=== PATIENT | female | born 1980 | race Caucasian/White ===

== ENCOUNTER 2020-01-03 08:47 | Outpatient (REF) | payer OTHER, SELFPAY | END 2020-01-03 08:48 | disposition home or self-care (01) | LOC: HO.LAB 08:47 | PROVIDERS: Visit Provider Internal Medicine | DX: Z20.828 Contact with and (suspected) exposure to other viral communicable diseases (principal) | CPT/HCPCS: C9803; U0003 ==

== ENCOUNTER 2020-02-16 10:01 | Outpatient (REF) | payer OTHER, SELFPAY | END 2020-02-16 10:02 | disposition home or self-care (01) | LOC: HO.LAB 10:01 | PROVIDERS: Visit Provider Internal Medicine | DX: Z20.828 Contact with and (suspected) exposure to other viral communicable diseases (principal) | CPT/HCPCS: C9803; U0003 ==

== ENCOUNTER 2020-10-18 18:02 | Emergency (ER) | payer OTHER, SELFPAY ==
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
[2020-10-18 18:12] VITALS: BP 136/97; PULSE 120; RESP 16; TEMP 36.6; O2SAT 96; BMI 28.1
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
[2020-10-18] MEDS: Acetaminophen 325 MG TABLET 650 MG PO (19:15)
[2020-10-18] MEDS: Amoxicillin/Potassium Clav 875 MG TABLET PO (19:16)
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
--- NOTE | 2020-10-18 19:54 | PC.NURSE ---
client to and from imaging without incident
[2020-10-18 20:56] VITALS: BP 171/86; PULSE 106; RESP 18; TEMP 36.7; O2SAT 97
[2020-10-18] MEDS: Diphth,Pertus(ACell),Tet Adult 0.5 ML SYRINGE IM (20:57)
== END 2020-10-18 21:07 | disposition home or self-care (01) ==
PROVIDERS: Emergency Provider Internal Medicine; PCP Family Medicine
DX: S00.83XA Contusion of other part of head, initial encounter (principal); S00.212A Abrasion of left eyelid and periocular area, initial encounter; S61.234A Puncture wound without foreign body of right ring finger without damage to nail, initial encounter; Y04.1XXA Assault by human bite, initial encounter; Y93.89 Activity, other specified; Y92.410 Unspecified street and highway as the place of occurrence of the external cause; Y99.9 Unspecified external cause status
CPT/HCPCS: 70450; 72125; 90471; 90715; 99284

== ENCOUNTER → 2021-12-23 13:32 | Outpatient (REF) | payer OTHER, SELFPAY ==
--- NOTE | 2021-12-23 13:36 | CA_ITS ---
Transthoracic Echocardiogram Patient (Last, First, Middle): Nida Hampton, Gender: Female Date of : 1980 Age: 41 Procedure Date: 12/23/2021 Procedure Type: Transthoracic Echocardiogram Location: OP Height: 175.26 cm Weight: 96.16 kg BSA: 2.12 m2 Heart Rate: 57 bpm BP: 130 / 78 mmHg Business Area Director: SB Referring MD: Fredy Schumacher MD Regulatory Specialist: Baldemar Stallings MD Symptoms: R01.1 - Cardiac murmur, unspecified Study Quality: Adequate ECG Rhythm: Bradycardia Conclusions: - Essentially normal study Findings Left Ventricle Normal left ventricular size, thickness, and systolic function. The visually estimated ejection fraction is between 65-70%. Diastolic function is normal for age. Right Ventricle Normal right ventricular cavity size and systolic function. Atria Both atria are normal in size. There is no evidence of interatrial shunt. Aortic Valve Normal aortic valve structure and function. There is no aortic valve stenosis. There is no aortic valve regurgitation. Mitral Valve Normal mitral valve structure and function. There is trace mitral valve regurgitation. There is no mitral valve stenosis. Pulmonic Valve The pulmonic valve is likely normal. Tricuspid Valve Normal tricuspid valve structure. Tricuspid regurgitation envelope is inadequate for calculation of right ventricular systolic pressure. Normal right atrial pressure. Great Vessels All visible segments of the aorta are normal in size. The pulmonary artery was not well visualized. Venous The inferior vena cava is normal in size and collapses greater than 50% with inspiration. Pericardium/Pleural There is no evidence of pericardial effusion. Prior Study Comparison no previous study in the last 5 years for comparison Measurements 2D Linear Measurements IVSd: 1.23 0.6-0.9/0.6-1.0 cm LVIDd: 3.75 3.9-5.3/4.2-5.9 cm LVIDd Index: 1.77 2.4-3.2/2.2-3.1 cm/m2 LVIDs: 2.82 2.0-3.6 cm LVPWd: 0.89 0.7-1.1 cm LA Diam: 3.30 2.7-3.8/3.0-4.0 cm LAIDs Index: 1.56 1.5-2.3 cm/m2 LV Mass: 155.29 67-162/88-224 g LV Mass Index: 73.25 43-95/49-115 g/m2 LVOT Diam: 2.20 3.0+(-)1.3 cm 2D Systolic Function EF 4C: 74.80 >55% EF 2C: 64.30 >55% EF BiP: 70.40 >55% Mitral Valve MV Pk E: 0.68 MV PK A: 0.45 MV Decel Time: 149.00 E/A: 1.50 E'Lateral: 11.70 E'Medial: 8.92 E/E' Med: 7.60 E/E' Lat: 5.80 PHT: 44.00 MVA PHT: 5.00 Decel [place]: 4.58 Aortic Valve AoV Pk Jethro: 1.12 AoV Mn Jethro: 0.86 AoV VTI: 0.25 AoV Pk Grad: 5.00 Aov Mn Grad: 3.00 KATE Cont.VTI: 3.43 LVOT LVOT Pk Jethro: 1.02 LVOT Mn Jethro: 0.71 LVOT VTI: 0.22 LVOT Pk Grad: 4.00 LVOT Mn Grad: 2.00 LVOT Diam: 2.20 LVOT Area: 3.80 Diastolic Function MV Pk E: 0.68 MV Pk A: 0.45 E/A: 1.50 E'Medial: 8.92 E/E' Med: 7.60 E' Laterial: 11.70 E/E' Lat: 5.80 Right Ventricle TAPSE (mm): 17.80 TVS' Jethro: 11.00 Tricuspid Valve RA Press: 3.00 Great Vessels Aorta Sinus of Valsalva: 3.30 2.0-3.5 cm Ao Asc: 3.10 2.1-3.4 cm Pulmonary Veins Pulm Vein S/D 1.20 Pulmonary Valve PV Pk Jethro: 1.06 Peak PV Grad: 4.00 Updated in Other Vendor System with Status of Final Baldemar Stallings MD electronically signed on 12/23/2021 5:30:29 PM with status of Final
== END ==
LOC: HO.CARD 13:32
PROVIDERS: Visit Provider Family Medicine
DX: R01.1 Cardiac murmur, unspecified (principal); Z86.19 Personal history of other infectious and parasitic diseases
CPT/HCPCS: 93306

== ENCOUNTER 2021-12-31 14:25 | Outpatient (REF) | payer OTHER, SELFPAY ==
--- NOTE | ~2021-12-31 | MM_ITS ---
EXAMINATION: MM SCREENING DIGITAL BREAST TOMOSYNTHESIS, BILATERAL CLINICAL INFORMATION: Screening. Asymptomatic. The lifetime risk of breast cancer based on the Tyrer-Cuzick Model is 24.7%. Additional annual screening with breast MRI may be of benefit in women with a score of 20% or greater. COMPARISON: Mammography: None TECHNIQUE: Digital breast tomosynthesis is performed in both the craniocaudal and mediolateral oblique views along with computer-aided detection (CAD). Synthesized 2D images are generated from the tomosynthesis. FINDINGS: The breasts are heterogeneously dense, which may obscure small masses (ACR BI-RADS breast composition Category c). No suspicious abnormal dominant mass or grouping of microcalcifications identified within the left breast. Within the anterior medial aspect of the right breast approximately 2.5 cm from the nipple there is a density with lobulated borders versus superimposition of fibroglandular tissue for which spot compression view and possible ultrasound if this is a persistent finding is recommended. MM/MM tomosynthesis screening BI IMPRESSION: Right breast density for further evaluation. ASSESSMENT: BI-RADS 0: Incomplete - Need Additional Imaging Evaluation RECOMMENDATION: 1. Additional views of the right breast. 2. Targeted ultrasound if warranted after review of the additional views. 3. Radiology department staff will contact the patient for additional imaging. This patient's information was entered into a reminder system with a target due date for their next mammogram.
== END 2021-12-31 14:26 | disposition home or self-care (01) ==
LOC: HO.MAMMO 14:25
PROVIDERS: PCP Family Medicine; Visit Provider Family Medicine
DX: Z12.31 Encounter for screening mammogram for malignant neoplasm of breast (principal)
CPT/HCPCS: 77063; 77067

== ENCOUNTER 2022-01-06 08:14 | Outpatient (REF) | payer OTHER, SELFPAY ==
--- NOTE | ~2022-01-06 | MM_ITS ---
EXAMINATION: MM DIAGNOSTIC DIGITAL BREAST TOMOSYNTHESIS, RIGHT US DIAGNOSTIC ULTRASOUND BREAST, RIGHT CLINICAL INFORMATION: Recall from screening for asymmetric fibroglandular density anterior medial right breast on CC view on baseline exam. TC score 25%. Family history premenopausal breast cancer, mother. COMPARISON: Mammography: 12/31/2021 (baseline, BI-RADS 0). TECHNIQUE: Digital breast tomosynthesis is performed. 2D images are generated from the tomosynthesis. The following views are obtained: Spot CC, rolled CC x2. Ultrasound right breast is performed using grayscale imaging and color Doppler without and with harmonics. FINDINGS: There are scattered areas of fibroglandular density (ACR BI-RADS breast composition Category b). There is a subtle small asymmetry in the area for follow-up on the rolled CC and medial view but no correlate on the rolled CC lateral view nor on the spot CC view. There is no architectural abnormality. Ultrasound demonstrates no cystic or solid mass or architectural abnormality or focal duct ectasia. Results are discussed with the patient at time of visit. Finding likely represents summation artifact. There is no ultrasound correlate there are persistent three-dimensional finding on additional views. Given the family history, short interval follow-up right mammography will be requested in 6 months. MM/MM tomosynthesis added views R IMPRESSION: -No suspicious mammographic finding. Suspect summation artifact. -Unremarkable ultrasound. ASSESSMENT: BI-RADS 3: Probably Benign RECOMMENDATION: Diagnostic right mammography in 6 months. This patient's information was entered into a reminder system with a target due date for their next mammogram.
== END 2022-01-06 08:15 | disposition home or self-care (01) ==
LOC: HO.MAMMO 08:14
PROVIDERS: PCP Family Medicine; Visit Provider Family Medicine
DX: R92.2 Inconclusive mammogram (principal)
CPT/HCPCS: 76642; 77061; 77065

== ENCOUNTER 2022-02-11 06:09 | Outpatient (REF) | payer OTHER, SELFPAY ==
[2022-02-11 06:24] LABS: MANUAL DIFF FLAG NO
[2022-02-11 07:25] LABS: Basophils Absolute Auto 0.1 X10*3/uL (0.0-0.2); Basophils Percent Auto 0.7 % (0-2); Eosinophils Absolute Auto 0.2 X10*3/uL (0.0-0.4); Eosinophils Percent Auto 3.1 % (0-4); Hematocrit 44.9 % (37.0-47.0); Hemoglobin 14.5 g/dl (12.0-16.0); Imm Gran Abs Auto 0.02 X10*3/uL (0.00-0.03); Imm Gran Pct Auto 0.3 % (0.0-0.4); Lymphocytes Absolute Auto 2.7 X10*3/uL (1.2-4.9); Lymphocytes Percent Auto 40.1 % (20-40); Mean Corpuscular HGB Conc 32.3 g/dl (31.0-35.0); Mean Corpuscular Hemoglobin 28.3 pg (27.0-33.0); Mean Corpuscular Volume 87.5 fL (80.0-98.0); Mean Platelet Volume 9.7 fL (9.4-12.3); Monocytes Absolute Auto 0.5 X10*3/uL (0.1-1.2); Monocytes Percent Auto 7.8 % (2-11); Neutrophils Absolute Auto 3.3 x10*3/uL (2.0-8.3); Platelet Count 247 X10*3/uL (160-400); Red Blood Count 5.13 X10*6/uL (4.20-5.50); Red Cell Distribution Width 12.7 % (11.0-16.0); White Blood Count 6.8 X10*3/uL (4.8-10.8)
[2022-02-11 08:15] LABS: Alanine Aminotransferase 24 U/L (0-31); Albumin Level 3.9 g/dL (3.5-5.0); Alkaline Phosphatase 63 U/L (39-117); Anion Gap 9 (12-20); Aspartate Amino Transferase 17 U/L (5-31); Bilirubin Total 0.4 mg/dL (0.0-1.0); Blood Urea Nitrogen 9 mg/dL (9-16); Calcium 9.6 mg/dL (8.4-10.2); Carbon Dioxide 28 mmol/L (22-29); Chloride 110 mmol/L (96-108); Cholesterol 178 mg/dL; Estimated Glomerular Filt Rate > 60; Glucose Fasting 98 mg/dL (60-99); HDL Cholesterol 54 mg/dL; LDL Cholesterol Calculated 114 mg/dl; Potassium 5.2 mmol/L (3.3-5.1); Sodium 142 mmol/L (135-145); TSH reflex Free T4 1.94 uIU/mL (0.32-4.0); Total Protein 6.2 g/dL (6.5-8.0); Triglycerides 51 mg/dL
[2022-02-11 09:04] LABS: Appearance Urine Clear; Color Urine Yellow; Glucose Urine UA Negative (Negative); Leukocyte Esterase Urine Negative (Negative); Nitrite Urine Negative (Negative); PH 5.5 (5.0-9.0); Specific Gravity - Urine >= 1.030 (1.005-1.025); Urine Blood Negative (Negative); Urine Ketones Negative (Negative); Urine Protein Negative (Neg-Trace)
[2022-02-11 09:33] LABS: Creatinine Urine 199.73 mg/dL; Microalbum/Creatinine Ratio Ur 4.5 ug/mg cr
[2022-02-17 17:03] LABS: Lyme Abs Screen <0.90 index
== END 2022-02-11 06:10 | disposition home or self-care (01) ==
LOC: HO.LAB 06:09
PROVIDERS: PCP Family Medicine; Visit Provider Family Medicine
DX: Z00.00 Encounter for general adult medical examination without abnormal findings (principal); I10 Essential (primary) hypertension; Z86.19 Personal history of other infectious and parasitic diseases
CPT/HCPCS: 36415; 80053; 80061; 81003; 82043; 84443; 85025; 86617; 86618

== ENCOUNTER 2022-05-12 12:43 | Outpatient (REF) | payer OTHER, SELFPAY ==
[2022-05-12 14:32] LABS: Anion Gap 14 (12-20); Blood Urea Nitrogen 11 mg/dL (9-16); Calcium 9.5 mg/dL (8.4-10.2); Carbon Dioxide 24 mmol/L (22-29); Chloride 107 mmol/L (96-108); Estimated Glomerular Filt Rate > 60; Glucose Random 89 mg/dL (60-115); Potassium 4.6 mmol/L (3.3-5.1); Sodium 140 mmol/L (135-145)
[2022-05-14 14:54] LABS: CRP High Sensitivity 0.9 mg/L
== END 2022-05-12 12:44 | disposition home or self-care (01) ==
LOC: HO.WFDLDS 12:43
PROVIDERS: Nurse Practitioner Family; Visit Provider Family Medicine
DX: Z00.00 Encounter for general adult medical examination without abnormal findings (principal); E87.5 Hyperkalemia; R52 Pain, unspecified
CPT/HCPCS: 36415; 80048; 86141

== ENCOUNTER 2022-07-08 13:49 | Outpatient (REF) | payer OTHER, SELFPAY ==
--- NOTE | ~2022-07-08 | MM_ITS ---
EXAMINATION: MM DIAGNOSTIC DIGITAL BREAST TOMOSYNTHESIS, RIGHT CLINICAL INFORMATION: Short interval six-month follow-up asymmetric fibroglandular density anterior medial right breast on baseline CC view. Family history premenopausal breast cancer, mother. TC score 25%. COMPARISON: Mammography: 01/06/2022, 12/31/2021 (baseline, BI-RADS 0). Right breast ultrasound 01/06/2022. TECHNIQUE: Digital breast tomosynthesis is performed in both the craniocaudal and mediolateral oblique views along with computer-aided detection (CAD). Synthesized 2D images are generated from the tomosynthesis. FINDINGS: There are scattered areas of fibroglandular density (ACR BI-RADS breast composition Category b). Breast tissue composition borders on heterogeneously dense. There is no developing density or interval mass or architectural abnormality in the anterior medial breast. No abnormal calcifications. Skin contours are smooth. Right breast will be reassessed again at time of annual bilateral mammography, due in 6 months. Results are provided to the patient at time of visit by the technologist. MM/MM tomosynthesis diagnostic RT IMPRESSION: No significant changes from prior exam. ASSESSMENT: BI-RADS 3: Probably Benign RECOMMENDATION: -Diagnostic mammography at time of annual bilateral mammography, due in 6 months. -The lifetime risk of breast cancer based on the Tyrer-Cuzick Model is 25%. Additional annual adjunct screening with breast MRI may be of benefit in women with a risk score of 20% or greater. This patient's information was entered into a reminder system with a target due date for their next mammogram.
== END 2022-07-08 13:50 | disposition home or self-care (01) ==
LOC: HO.MAMMO 13:49
PROVIDERS: PCP Family Medicine; Visit Provider Family Medicine
DX: R92.2 Inconclusive mammogram (principal)
CPT/HCPCS: 77061; 77065

== ENCOUNTER 2022-08-31 06:55 | Outpatient (REF) | payer OTHER, SELFPAY ==
[2022-08-31 07:52] LABS: Alanine Aminotransferase 23 U/L (0-31); Albumin Level 3.8 g/dL (3.5-5.0); Alkaline Phosphatase 72 U/L (39-117); Anion Gap 10 (12-20); Aspartate Amino Transferase 19 U/L (5-31); Bilirubin Total 0.6 mg/dL (0.0-1.0); Blood Urea Nitrogen 14 mg/dL (9-16); Calcium 9.2 mg/dL (8.4-10.2); Carbon Dioxide 27 mmol/L (22-29); Chloride 107 mmol/L (96-108); Cholesterol 198 mg/dL; Estimated Glomerular Filt Rate > 60; Glucose Fasting 105 mg/dL (60-99); HDL Cholesterol 57 mg/dL; LDL Cholesterol Calculated 125 mg/dl; Potassium 4.4 mmol/L (3.3-5.1); Sodium 140 mmol/L (135-145); Total Protein 6.5 g/dL (6.5-8.0); Triglycerides 84 mg/dL
== END 2022-08-31 06:56 | disposition home or self-care (01) ==
LOC: HO.LAB 06:55
PROVIDERS: PCP Family Medicine; Visit Provider Family Medicine
DX: Z00.00 Encounter for general adult medical examination without abnormal findings (principal)
CPT/HCPCS: 36415; 80053; 80061

== ENCOUNTER 2023-01-19 11:17 | Outpatient (REF) | payer OTHER, SELFPAY ==
--- NOTE | ~2023-01-19 | US_ITS ---
EXAMINATION: MM DIAGNOSTIC DIGITAL BREAST TOMOSYNTHESIS, BILATERAL US BREAST LIMITED, LEFT MAMMOGRAPHY: CLINICAL INFORMATION: 6 month Follow-up one view asymmetry right breast CC view anterior one third just medial to the nipple line. COMPARISON: Mammography: 12/31/2021, 01/06/2022, 07/08/2022, ultrasound right breast 01/06/2022. TECHNIQUE: Digital breast tomosynthesis is performed including the following views: Full-field 3-D digital bilateral MLO and CC views, 3-D spot compression bilateral CC views, and 3-D spot compression left MLO view FINDINGS: There are scattered areas of fibroglandular density (ACR BI-RADS breast composition Category b). There is no persistent asymmetric density or mass in the right breast medially or elsewhere. No developing parenchymal distortion or abnormal calcifications. In the left breast, superior and lateral to the tissue cone, as an asymmetric focal density which will undergo ultrasound as detailed below. Otherwise, the left breast demonstrates no abnormalities. No axillary adenopathy is present. ULTRASOUND: CLINICAL INFORMATION: Evaluate asymmetric tissue density upper outer left breast. COMPARISON: None TECHNIQUE: Targeted sonographic evaluation was performed using a high frequency linear transducer. Attention was given to the 2-3 o'clock axis left breast. Selected archived documentation. FINDINGS: LEFT BREAST: In the 2:00 axis of the left breast, a CM from the nipple, there is a slightly irregular oval lesion with mixed echogenicity, no posterior features, positive internal blood flow on color Doppler imaging, measuring approximately 1.1 x 0.7 x 0.6 cm. This is indeterminant, and may correlate with the asymmetric tissue density in the upper outer left breast. Biopsy is warranted. At the 3:00 axis of the left breast, there is a small oval circumscribed hypoechoic mass measuring 4 x 4 millimeters with good through transmission, most likely an incidental tiny fibroadenoma. We will follow this in 6 months with targeted left ultrasound. US/US breast LT limited mamm only IMPRESSION: Indeterminant mass/lesion LEFT breast 2:00 axis measuring 1.1 x 0.7 x 0.6 cm, for which ultrasound-guided biopsy is recommended. 4 x 4 x 4 mm probable small fibroadenoma LEFT breast 3:00 axis, for which six-month interval follow-up is recommended. There are no suspicious findings in the RIGHT breast. Findings and recommendations were discussed with the patient in detail. OVERALL ASSESSMENT: Mammography: BI-RADS 4 - Suspicious finding Ultrasound: BI-RADS 4 - Suspicious finding RECOMMENDATION: Biopsy recommended
== END 2023-01-19 11:18 | disposition home or self-care (01) ==
LOC: HO.MAMMO 11:17
PROVIDERS: PCP Family Medicine; Visit Provider Family Medicine
DX: R92.8 Other abnormal and inconclusive findings on diagnostic imaging of breast (principal)
CPT/HCPCS: 76642; 77062; 77066

== ENCOUNTER → 2023-01-19 11:30 | Outpatient (BNV) | payer OTHER, SELFPAY | PROVIDERS: PCP Family Medicine; Visit Provider Radiology Diagnostic Radiology | DX: R92.323 Mammographic fibroglandular density, bilateral breasts (principal); D24.2 Benign neoplasm of left breast | CPT/HCPCS: 76642; 77062; 77066 ==

== ENCOUNTER 2023-01-24 09:17 | Outpatient (AMB) | payer OTHER, SELFPAY ==
--- NOTE | 2023-01-24 09:19 | MHC.OFFVIS ---
Intake Vital Signs 01/24/23 09:25 Height 5 ft 8.5 in Weight 217 lb BMI 32.5 BP 133/78 Blood Pressure Location Lt brachial Position Sitting Pulse 69 Intake Visit Reasons: US guided Bx Lt breast 2 o'clock asymmetry Intake Note: This patient presents for an assessment for an assessment for Ultrasound guided biopsy left breast 2 o'clock asymmetry. Patient c/o; reports no pain, reports no discharge from nipple, reports no changes in size or shape. 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 Patient self has no breast issues or complaints. She does occasional use of breast exams. She denies any breast symptoms. Family history positive for mother passing away from breast cancer in her very young age (35) Chart was reviewed patient evaluated [facility] Medical History (Updated 05/12/22 @ 12:37 by Patsy Hillman CNP) Lyme disease Family History (Updated 01/24/23 @ 09:27 by DENILSON Erickson) Mother Breast cancer Family/Other Breast cancer Social History Alcohol intake: unknown Patient Tobacco Use Status: Former Tobacco user Years Smoked: quit 2 days ago e-Cigarette/Vaping Use: Never Used service: No Current occupational status: employed Current occupational exposures/hazards: No Cognitive needs: No Hearing needs: No Vision needs: No Female Reproductive History Menstrual Age of Menarche: 11 Total pregnancies: 0 Physical Exam Vital Signs: Last Vital Signs Pulse 69 01/24/23 09:25 BP 133/78 01/24/23 09:25 BMI result Body Mass Index 32.5 Chest Other: Bilateral breast exam demonstrates no evidence of any mass, discharge, skin changes, or periclavicular or axillary adenopathy bilaterally. GI Other: Abdomen soft, moderately corpulent, benign Assessment & Plan Assessment & Plan (1) Left breast mass: Code(s): N63.20 - Unspecified lump in the left breast, unspecified quadrant Plan: Patient is scheduled for ultrasound-guided biopsy of her suspicious left breast lesion. Incidental finding of a left breast adenoma which will be followed in 6 months by serial surveillance radiographic studies. All questions were answered. Patient will see me in proximal weeks time status post biopsy to review the results. Orders: Orders US breast ndl core biopsy LT Today N63.20 - Unspecified lump in the left breast, unspecified quadrant Coding Level of Care Code New Pt Level 4 (24360) Diagnoses Left breast mass N63.20
[2023-01-24 09:25] VITALS: BP 133/78; PULSE 69; BMI 32.5
== END 2023-01-24 09:45 | disposition home or self-care (01) ==
PROVIDERS: PCP Family Medicine; Visit Provider Surgery
DX: N63.20 Unspecified lump in the left breast, unspecified quadrant (principal)
CPT/HCPCS: 99204

== ENCOUNTER 2023-01-24 09:51 | Outpatient (REF) | payer OTHER, SELFPAY ==
--- NOTE | ~2023-01-24 | US_ITS ---
PROCEDURE: US GUIDED BREAST BIOPSY, LEFT CLINICAL INFORMATION: Suspicious focus/mass seen on both mammography and ultrasonography at the 2:00 axis left breast 8 cm from the nipple. COMPARISON: 01/19/2023 ultrasound and mammogram 07/08/2022 diagnostic mammogram. Exams dating back to 2021. PROCEDURAL DETAILS: The details of the procedure, as well as the risks, benefits, and alternatives to the procedure were explained to the patient in detail and all of her questions were answered, after which written informed consent was obtained. Site and side were confirmed. Prior to the procedure, sonography revealed an 1.1 x 0.7 x 0.6 cm slightly irregular hypoechoic mass at the 2:00 axis of the left breast, 8 cm from the nipple. A time-out was performed, the lesion intended for biopsy was targeted, and the skin of the left breast was then prepped and draped in the usual sterile fashion. Using sonographic guidance, sterile technique, and 1% lidocaine without epinephrine for local anesthesia, multiple core biopsies were obtained through the targeted area with a 14G spring loaded [employer] core biopsy device. There was real-time confirmation of appropriate needle passage. Sampling was documented. No biopsy clip was placed, as the patient adamantly REFUSED biopsy clip placement. Should pathology results be positive, RFID localization will be done via ultrasound. There was no evidence of immediate complication. Patient tolerated the procedure quite well. SPECIMEN: An appropriate sample was obtained, with 6 cores taken. DIGITAL POST-PROCEDURE MAMMOGRAPHY: Breast density: The tissue is heterogeneously dense which may obscure small masses. BI-RADS version 5, category C. There are no new mammographic findings demonstrated. The postprocedure 2-view direct digital mammogram reveals biopsy site changes appropriately abutting the suspected mass on mammography. No clip was placed as the patient refused. The patient tolerated the procedure well and, after assuring adequate hemostasis, was discharged in good condition after reviewing postbiopsy breast care instructions. Final pathology results are pending. US/US breast ndl core biopsy LT IMPRESSION: 1. No immediate complication from ultrasound-guided percutaneous biopsy left breast mass at 2:00 axis, 8 cm from the nipple. 2. The patient refused marker clip placement adamantly. Dr. Carcamo was made aware via secure text. 3. The 2-view direct digital postprocedure mammogram reveals biopsy site changes abutting the suspected primary mammographic target. Should localization be required, this will be accomplished via ultrasound. 4. Final pathology results are pending. A separate report with final recommendations will be issued once these results are made available
[2023-01-24] MEDS: Lidocaine HCl 1 % 20 ML VIAL 8 ML SUBCUT (11:47)
[2023-01-24] MEDS: Sodium Bicarbonate 8.4% 50 MEQ/50 ML VIAL SUBCUT (11:47)
== END 2023-01-24 09:52 | disposition home or self-care (01) ==
LOC: HO.MAMMO 09:51
PROVIDERS: PCP Family Medicine; Visit Provider Surgery
DX: N63.21 Unspecified lump in the left breast, upper outer quadrant (principal)
CPT/HCPCS: 19083; 77061; 77065; 88305; 88341; 88342; 88360; 99202

== ENCOUNTER → 2023-01-24 10:10 | Outpatient (BNV) | payer OTHER, SELFPAY | PROVIDERS: PCP Family Medicine; Visit Provider Radiology Diagnostic Radiology | DX: C50.912 Malignant neoplasm of unspecified site of left female breast (principal) | CPT/HCPCS: 19083; 77065 ==

== ENCOUNTER 2023-02-01 08:28 | Outpatient (AMB) | payer OTHER, SELFPAY ==
[2023-02-01 08:34] VITALS: BP 123/77; PULSE 57; BMI 32.6
--- NOTE | 2023-02-01 08:34 | MHC.OFFVIS ---
Intake Vital Signs 02/01/23 08:34 Height 5 ft 9 in Weight 221 lb BMI 32.6 BP 123/77 Blood Pressure Location Rt brachial Position Sitting Pulse 57 Intake Visit Reasons: S/p US guided Bx Lt breast 2 o'clock asymmetry Intake Note: Patient here s/p U/S guided bx Lt breast on 01-24-23. Patient c/o: tenderness to touch. 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 She has no post biopsy issues. We had a very lengthy discussion regarding the patient's biopsy results. Patient is scheduled for genetic breast testing today. Internal discussion was had on therapeutic options which include lumpectomy with sentinel lymph node biopsy with x-ray therapy, or mastectomy. I think the patient is a good candidate for the former. PFSH Medical History Lyme disease Family History Mother Breast cancer Family/Other Breast cancer Social History Alcohol intake: unknown Patient Tobacco Use Status: Former Tobacco user Years Smoked: quit 2 days ago e-Cigarette/Vaping Use: Never Used service: No Current occupational status: employed Current occupational exposures/hazards: No Cognitive needs: No Hearing needs: No Vision needs: No Female Reproductive History Menstrual Age of Menarche: 11 Physical Exam Vital Signs: Last Vital Signs Pulse 57 02/01/23 08:34 BP 123/77 02/01/23 08:34 BMI result Body Mass Index 32.6 Chest Other: Biopsy site clean dry and intact Assessment & Plan Assessment & Plan (1) Breast cancer, left: Code(s): C50.912 - Malignant neoplasm of unspecified site of left female breast Plan Current plan is for patient undergo genetic testing as well as oncology consultation. She will see me after the above, Further discussions will be had regarding definitive surgical therapy. All questions answered. Very lengthy discussion was had regarding surgical options including lumpectomy, sentinel lymph node biopsy, and post resection radiation and for mastectomy with immediate or delayed reconstruction. Coding Level of Care Code Est Pt Level 4 (09025) Diagnoses Breast cancer, left C50.912
== END 2023-02-01 09:05 | disposition home or self-care (01) ==
PROVIDERS: PCP Family Medicine; Visit Provider Surgery
DX: C50.912 Malignant neoplasm of unspecified site of left female breast (principal)
CPT/HCPCS: 99214

== ENCOUNTER → 2023-02-01 08:28 | Outpatient (BNVA) | payer OTHER, SELFPAY | PROVIDERS: PCP Family Medicine; Visit Provider Surgery | DX: C50.412 Malignant neoplasm of upper-outer quadrant of left female breast (principal) | CPT/HCPCS: 99212 ==

== ENCOUNTER → 2023-02-04 13:59 | Outpatient (BNV) | payer OTHER, SELFPAY | PROVIDERS: PCP Family Medicine; Visit Provider Internal Medicine | DX: C50.912 Malignant neoplasm of unspecified site of left female breast (principal) | CPT/HCPCS: 99205 ==

== ENCOUNTER 2023-02-16 13:53 | Outpatient (AMB) | payer OTHER, SELFPAY ==
--- NOTE | 2023-02-16 13:54 | MHC.OFFVIS ---
Intake Vital Signs 02/16/23 13:55 Height 5 ft 9 in Weight 219 lb BMI 32.3 BP 127/74 Blood Pressure Location Rt brachial Position Sitting Pulse 55 Intake Visit Reasons: Discuss genetic testing results Intake Note: Patient here to discuss genetic testing results on 02-01-23. Patient was seen by Dr. Mantilla for breast CA txt on 02-04-23. 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 This was reviewed with the patient she was given a copy of genetic testing. We will also arrange for her to be with the hospital justice court deputy clerk for further discussion. Patient is also considering going for a 2nd opinion which I strongly encouraged regarding her triple negative left breast cancer. Patient wants to discuss the lumpectomy and sentinel lymph node biopsy which was reviewed. Risks, benefits, alternatives of the procedure were discussed and included but not limited to bleeding, infection, recurrence, numbness, pain, scarring the patient is considering this option. She will discuss with the justice court deputy clerk for the risks and consideration for bilateral mastectomies with or without reconstruction as well. [facility] Medical History Lyme disease Family History Mother Breast cancer Family/Other Breast cancer Social History Household Members: None Alcohol intake: unknown Patient Tobacco Use Status: Former Tobacco user Years Smoked: quit 2 days ago e-Cigarette/Vaping Use: Never Used service: No Current occupational status: employed Current occupational exposures/hazards: No Cognitive needs: No Hearing needs: No Vision needs: No Female Reproductive History Menstrual Age of Menarche: 11 Physical Exam Vital Signs: Last Vital Signs Pulse 55 02/16/23 13:55 BP 127/74 02/16/23 13:55 BMI result Body Mass Index 32.3 Chest Other: Chest breath sounds bilaterally, HS 1 in 2 Breast exam grossly within normal limits. Biopsy site clean dry and intact. No obvious periclavicular cervical or axillary adenopathy demonstrated. Assessment & Plan Assessment & Plan (1) Breast cancer, left: Code(s): C50.912 - Malignant neoplasm of unspecified site of left female breast Plan: Will await patient's desires regarding surgical intervention here or at an outside facility. All questions answered. Patient will contact us should she wish to proceed with surgical intervention at [place]. She will require localized replacement prior to surgery. Orders: Orders MM needle loc LT Today C50.912 - Malignant neoplasm of unspecified site of left female breast Coding Level of Care Code Est Pt Level 5 (40658) Diagnoses Breast cancer, left C50.912
[2023-02-16 13:55] VITALS: BP 127/74; PULSE 55; BMI 32.3
== END 2023-02-16 14:39 | disposition home or self-care (01) ==
PROVIDERS: PCP Family Medicine; Visit Provider Surgery
DX: C50.912 Malignant neoplasm of unspecified site of left female breast (principal)
CPT/HCPCS: 99214

== ENCOUNTER → 2023-02-16 13:53 | Outpatient (BNVA) | payer OTHER, SELFPAY | PROVIDERS: PCP Family Medicine; Visit Provider Surgery | DX: C50.912 Malignant neoplasm of unspecified site of left female breast (principal) | CPT/HCPCS: 99212 ==

== ENCOUNTER 2023-07-08 15:56 | Outpatient (AMB) | payer OTHER, SELFPAY ==
[2023-07-08 16:03] VITALS: BP 120/62; PULSE 69; O2SAT 97; BMI 33.6
--- NOTE | 2023-07-08 16:03 | MHC.PC.OV ---
Vital Signs 07/08/23 16:03 Height 5 ft 9 in Weight 227 lb 4 oz BMI 33.6 BP 120/62 Blood Pressure Location Lt brachial Position Sitting Pulse 69 Pulse Source Pulse Oximeter Pulse Oximetry (%) 97 Oxygen Delivery Method Room Air Intake Visit Reasons: CPE Follow up labs Intake Note: Patient is here for her physical today. She would like to have blood work done. Allergies doxycycline [DOXYCYCLINE] Allergy (Unknown, Verified 07/08/23 16:07) NAUSEA/VOMITING Tobacco use date assessed: 07/08/23 Dental Screening Dental Screen Date: 07/08/23 Did you have a dental visit in the last 12 months?: No Did you have a dental problem in the last 6 months where you did not have access to dental care?: No Was dental information given to patient?: Patient declined HPI CPE Follow up labs HPI Details 43 y/o female presents for an extended exam with f/u labs and health maintenance. No recent CPE-labs to review. Had been following up with [facility] for L breast cancer. She is b/L mastectomy and states she has tolerated chemotherapy. [facility] Medical History Lyme disease Family History Mother Breast cancer Family/Other Breast cancer Social History Household Members: None Housing: Apartment Alcohol intake: unknown Patient Tobacco Use Status: Former Tobacco user Quit Date: Quit in April of 2022. Years Smoked: quit 2 days ago e-Cigarette/Vaping Use: Never Used service: No Current occupational status: employed Current occupational exposures/hazards: No Cognitive needs: No Hearing needs: No Vision needs: No Female Reproductive History Menstrual Age of Menarche: 11 Questionnaire PHQ-9 Over the last 2 weeks, how often have you been bothered by any of the following problems? 1. Little interest or pleasure in doing things: not at all 2. Feeling down, depressed, or hopeless: not at all 3. Trouble falling or staying asleep, or sleeping too much: more than half the days 4. Feeling tired or having little energy: several days 5. Poor appetite or overeating: not at all 6. Feeling bad about yourself - or that you are a failure or have let yourself or your family down: not at all 7. Trouble concentrating on things, such as reading the newspaper or watching television: not at all 8. Moving or speaking so slowly that other people could have noticed. Or the opposite - being so fidgety or restless that you have been moving around a lot more than usual: not at all 9. Thoughts that you would be better off or of hurting yourself in some way: not at all Total score: 3 Depression Screening Interpretation: Negative Depression Screening Done: Yes 24955 - PHQ-9 Billing: Yes Source: Developed by Drs. Saul Ponce, Berkley Hoffman, Ronan Rojas and colleagues, with an educational gerry from [employer]. Thrive Questionnaire Date Thrive assessed: 07/08/23 I am a: Patient What is your living situation today?: I have a steady place to live Within the past 12 months, did the food you bought not last and you didn't have the money to get more?: Never true Within the past 12 months, did you worry whether your food would run out before you got money to buy more?: Never true Do you have trouble paying for medicines?: No Do you have trouble getting transportation to medical appointments?: No Do you have trouble paying your heating and electricity bill?: No Do you have trouble taking care of your child, family member or friend?: I choose not to answer this question Do you have trouble with day-to-day activities such as bathing, preparing meals, shopping, managing finances, etc.?: No Are you currently unemployed and looking for a job?: No Are you interested in more education?: Yes THRIVE Score: 0 EMERSON-7 AMB Questionnaire EMERSON-7 Date EMERSON - 7 assessed: 07/08/23 Feeling nervous, anxious, or on edge: 0 = Not at all Not being able to stop or control worryin = Not at all Worrying too much about different things: 0 = Not at all Trouble relaxin = Not at all Being so restless that it is hard to sit still: 0 = Not at all Becoming easily annoyed or irritable: 0 = Not at all Feeling afraid as if something awful might happen: 0 = Not at all Total EMERSON-7 score (0-4 normal; 5-9 mild; 10-14 moderate; 15-21 severe): 0 Source: Developed by Drs. Saul Ponce, Berkley Hoffman, Ronan Rojas and colleagues, with an educational gerry from [employer]. EMERSON-7 Assessment Billing EMERSON-7 Assessment Tool: EMERSON-7 Assessment 31246 Review of Systems Const Denies chills, Denies fatigue, Denies fever(s), Denies headache(s) and Denies weakness Eyes Denies change in vision ENT Denies dizziness, Denies headache(s), Denies hearing loss, Denies nasal congestion, Denies sinus pain, Denies sinus pressure and Denies sore throat Card Denies chest pain, Denies lightheadedness, Denies dyspnea and Denies other (palpitations) Resp Denies cough, Denies dyspnea and Denies wheezing GI Denies abdominal pain, Denies melena, Denies hematochezia, Denies change in bowel habits, Denies dyspepsia and Denies nausea Denies hematuria and Denies dysuria Musc Denies abnormal gait, Denies myalgias, Denies arthralgias, Denies numbness and Denies tingling Skin/Breast Denies rash, Denies unusual bruising and Denies wounds Neuro Denies abnormal gait, Denies dizziness, Denies headache(s), Denies memory loss, Denies numbness, Denies Sensory deficit (Neuro), Denies tingling and Denies weakness Psych Denies anxiety, Denies depression and Denies memory loss Endo Denies cold intolerance, Denies fatigue, Denies heat intolerance, Denies polydipsia and Denies polyuria Solo/Lymph Denies easy bleeding and Denies easy bruising Aller/Immun Denies wheezing Physical exam (Primary Care) Vital Signs: Last Vital Signs Pulse 69 07/08/23 16:03 BP 120/62 07/08/23 16:03 Pulse Ox 97 07/08/23 16:03 Oxygen Delivery Method Room Air 07/08/23 16:03 BMI result Body Mass Index 33.6 Tobacco/Smoking Status: Tobacco use Status Tobacco use date assessed 07/08/23 07/08/23 16:10 Patient Tobacco Use Status Former Tobacco user 07/08/23 16:10 Tobacco use type 12/08/21 16:01 e-Cigarette/Vaping Use Never Used 07/08/23 16:10 PHQ-9: PHQ-9 Score PHQ-9: Total score 3 07/08/23 16:29 Depression Screening Interpretation: Negative Thrive Assessment: Date of Thrive Assessment Date Thrive assessed 07/08/23 07/08/23 16:25 Const General: no acute distress, well developed, alert and awake Nutritional Appearance: well nourished Orientation/consciousness: patient oriented x3 HENMT Head: Yes normocephalic and Yes atraumatic Ears: hearing grossly normal bilaterally and TM's normal bilaterally General nose exam: Normal external nose present and Normal nares present Mouth: Normal oral and palatal mucosa present and moist mucous membranes Teeth and gingiva: dentition normal Throat: Yes posterior oropharynx normal Eyes General: appearance normal, both eyes and all related structures Pupils: Equal, round and reactive pupils present and Pupil accommodation reflex normal EOM: EOMs intact bilaterally Neck Neck: Yes normal visual inspection, Yes no lymphadenopathy and Yes trachea midline Thyroid: Thyroid normal Carotids: no bruits Lymphatic: no lymphadenopathy noted Chest Chest palpation & inspection: normal inspection of the chest Resp Effort & Inspection: normal respiratory effort Auscultation: clear to auscultation bilaterally Cardio Rate: regular rate Rhythm: regular rhythm Heart sounds: S1 normal heart sound present, S2 normal heart sound present, no gallops, no murmurs and no rubs Bruits: no abdominal aortic bruits and no carotid bruits GI Palpation (GI): No Abdominal aortic bruit present, Soft to palpation, nontender, No hepatosplenomegaly present and No Rebound tenderness present Auscultation: normal bowel sounds General: Yes no CVA tenderness Back/Spine/Pelvis Back: no CVA tenderness Cervical Spine: cervical ROM normal and No Cervical spine tenderness Thoracic/Lumbar Spine: thoraco-lumbar ROM normal, No pain with thoraco-lumbar ROM, No thoracic spinal tenderness and No lumbar spinal tenderness Skin Lesions: no lesions Rashes: no rashes Trauma: no lacerations or abrasions Wounds: no wounds Nails: normal Neuro General: patient oriented x3 Cranial nerves: Yes Equal, round and reactive pupils present Cognition (Neuro): normal cognition Gait exam (Neuro): Normal gait present Motor exam (neuro): 5/5 motor strength present throughout Sensory Exam: No Sensory deficit (Neuro) Deep tendon reflexes (DTR's): Right patellar reflex intensity grade: 2+ and Left patellar reflex intensity grade: 2+ Extrem General: Yes normal to inspection and No edema Psych Appearance: grossly normal Affect: normal affect Attitude: cooperative Thought process: Normal thought process present Assessment and Plan Assessment & Plan (1) Breast cancer, left: Code(s): C50.912 - Malignant neoplasm of unspecified site of left female breast Plan: Now?s/p?bilateral?mastectomies?and?chemotherapy?x4. Finished?with?chemotherapy?and?has?six-month?follow-up?in?[place]?scheduled. Follow-up?with?[facility]?and?surgeon?as?recommended (2) Hypertension: Code(s): I10 - Essential (primary) hypertension Plan: Blood?pressure?well?controlled. She?has?not?on?medications We?can?follow?this (3) Screening for cervical cancer: Code(s): Z12.4 - Encounter for screening for malignant neoplasm of cervix Plan: Patient?says?she?used?to?get?her[facility]she?would?get?depot?shots?from?them?but?has?not?followed?up?with?Pap?smears?since?she?discontinued?though?shots. Asked?her?to?follow-up?with?plan?parent?heard?for?Pap?smear?or?she?can?let?me?know?and?I?will?make?a?referral?to?[facility]?for?cervical?cancer?screening. (4) Screening for colon cancer: Code(s): Z12.11 - Encounter for screening for malignant neoplasm of colon Plan: No?first-degree?relatives?with?colon?cancer Will?start?screening?next?year?at?age?44 (5) Annual physical exam: Code(s): Z00.00 - Encounter for general adult medical examination without abnormal findings Plan: 43-year-old?female?presents?for?an?extended?exam Encouraged?healthy?diet?and?exercise Orders: Orders Comprehensive [place]. Panel Fast Today Z00.00 - Encounter for general adult medical examination without abnormal findings Lipid Panel Today Z00.00 - Encounter for general adult medical examination without abnormal findings TSH reflex Free T4 Today Z00.00 - Encounter for general adult medical examination without abnormal findings Complete Blood Count Auto Diff Today Z00.00 - Encounter for general adult medical examination without abnormal findings Microalbumin, Random (w Creat) Today I10 - Essential (primary) hypertension UA and rflx microscopic Today Z00.00 - Encounter for general adult medical examination without abnormal findings Coding Level of Care Code Est Pt Level 4 (13131) Diagnoses Breast cancer, left C50.912 Hypertension I10 Screening for cervical cancer Z12.4 Screening for colon cancer Z12.11 Annual physical exam Z00.00 Additional Codes EMERSON-7 Assessment Billing - EMERSON-7 Assessment Tool: EMERSON-7 Assessment [id number] ([id number])
== END 2023-07-08 16:51 | disposition home or self-care (01) ==
PROVIDERS: PCP Family Medicine; Visit Provider Family Medicine
DX: Z00.00 Encounter for general adult medical examination without abnormal findings (principal); C50.912 Malignant neoplasm of unspecified site of left female breast; I10 Essential (primary) hypertension; Z12.11 Encounter for screening for malignant neoplasm of colon
CPT/HCPCS: 99396

== ENCOUNTER 2023-07-09 07:24 | Outpatient (REF) | payer OTHER, SELFPAY ==
[2023-07-09 07:47] LABS: MANUAL DIFF FLAG NO
[2023-07-09 07:56] LABS: Basophils Absolute Auto 0.1 X10*3/uL (0.0-0.2); Basophils Percent Auto 1.1 % (0-2); Eosinophils Absolute Auto 0.1 X10*3/uL (0.0-0.4); Eosinophils Percent Auto 2.5 % (0-4); Hematocrit 40.1 % (37.0-47.0); Hemoglobin 12.9 g/dl (12.0-16.0); Imm Gran Abs Auto 0.02 X10*3/uL (0.00-0.03); Imm Gran Pct Auto 0.4 % (0.0-0.4); Lymphocytes Absolute Auto 1.4 X10*3/uL (1.2-4.9); Lymphocytes Percent Auto 30.2 % (20-40); Mean Corpuscular HGB Conc 32.2 g/dl (31.0-35.0); Monocytes Absolute Auto 0.5 X10*3/uL (0.1-1.2); Monocytes Percent Auto 9.5 % (2-11); Neutrophils Absolute Auto 2.7 x10*3/uL (2.0-8.3); Neutrophils Percent Auto 56.3 % (45-73); Platelet Count 276 X10*3/uL (160-400); Red Blood Count 4.61 X10*6/uL (4.20-5.50); Red Cell Distribution Width 16.1 % (11.0-16.0); White Blood Count 4.7 X10*3/uL (4.8-10.8)
[2023-07-09 08:32] LABS: Alanine Aminotransferase 28 U/L (0-31); Albumin Level 3.9 g/dL (3.5-5.0); Alkaline Phosphatase 51 U/L (39-117); Anion Gap 10 (12-20); Aspartate Amino Transferase 22 U/L (5-31); Bilirubin Total 0.4 mg/dL (0.0-1.0); Blood Urea Nitrogen 11 mg/dL (9-16); Calcium 9.5 mg/dL (8.4-10.2); Carbon Dioxide 28 mmol/L (22-29); Chloride 108 mmol/L (96-108); Cholesterol 233 mg/dL (<200); Estimated Glomerular Filt Rate > 60; Glucose Fasting 107 mg/dL (60-99); HDL Cholesterol 57 mg/dL (>40); LDL Cholesterol Calculated 158 mg/dL (<100); Potassium 4.4 mmol/L (3.3-5.1); Sodium 142 mmol/L (135-145); Total Protein 6.4 g/dL (6.5-8.0); Triglycerides 90 mg/dL (<150)
[2023-07-09 08:41] LABS: Appearance Urine Cloudy; Color Urine Yellow; Glucose Urine UA Negative (Negative); Leukocyte Esterase Urine Moderate (2+) (Negative); Nitrite Urine Negative (Negative); Specific Gravity - Urine 1.015 (1.005-1.025); UMIC TRIGGER UA YES; Urine Blood Trace (Negative); Urine Ketones Negative (Negative); Urine Protein Negative (Neg-Trace)
[2023-07-09 08:47] LABS: Bacteria Urine 1+ (None Seen); Hyaline Casts Urine 0-2 /LPF (0-2); RBC Urine 0-2 /HPF (0-2)
[2023-07-09 08:51] LABS: TSH reflex Free T4 0.68 uIU/mL (0.32-4.0)
[2023-07-09 09:24] LABS: Creatinine Urine 138.87 mg/dL; Microalbum/Creatinine Ratio Ur 5.7 ug/mg cr (<30)
== END 2023-07-09 07:25 | disposition home or self-care (01) ==
LOC: HO.LAB 07:24
PROVIDERS: PCP Family Medicine; Visit Provider Family Medicine
DX: Z00.00 Encounter for general adult medical examination without abnormal findings (principal); I10 Essential (primary) hypertension
CPT/HCPCS: 36415; 80053; 80061; 81001; 82043; 82570; 84443; 85025

== ENCOUNTER → 2023-08-04 16:55 | Outpatient (AMB) | payer OTHER, SELFPAY ==
--- NOTE | 2023-08-04 16:49 | MHC.PC.OV ---
Intake Visit Reasons: f/u Intake Note: Patient is scheduled to follow up on labs, and would like to discuss bilateral ankle swelling, and would like to discuss Ozempic. Allergies doxycycline [DOXYCYCLINE] Allergy (Unknown, Verified 08/04/23 16:51) NAUSEA/VOMITING Medication List - Last Reconciled 08/04/23 by Fredy Schumacher MD No Known Home Meds Tobacco use date assessed: 07/08/23 Dental Screening Dental Screen Date: 07/08/23 HPI f/u HPI Details 43 y/o female presents to review CPE-labs via telemedicine. Labs were drawn 07/09/23. Reviewed labs with pt. Elevated fasting glucose of 107. She denies any FHx of diabetes. Triglycerides 90. TC 233. LDL 158. HDL 57. She is not on anything for her cholesterol. 1+ urine bacteria seen. Pt reports bilateral ankle swelling. Pt reports urinary frequency/discomfort. PFSH Medical History Lyme disease Family History Mother Breast cancer Family/Other Breast cancer Social History Household Members: None Housing: Apartment Alcohol intake: unknown Patient Tobacco Use Status: Former Tobacco user Years Smoked: quit 2 days ago e-Cigarette/Vaping Use: Never Used service: No Current occupational status: employed Current occupational exposures/hazards: No Cognitive needs: No Hearing needs: No Vision needs: No Female Reproductive History Menstrual Age of Menarche: 11 Questionnaire Thrive Questionnaire Date Thrive assessed: 07/08/23 EMERSON-7 AMB Questionnaire EMERSON-7 Date EMERSON - 7 assessed: 07/08/23 Source: Developed by Drs. Saul Ponce, Berkley Hoffman, Ronan Rojas and colleagues, with an educational gerry from [employer]. Review of Systems Const Denies chills, Denies fatigue, Denies fever(s), Denies headache(s) and Denies weakness ENT Denies dizziness and Denies headache(s) Card Denies dyspnea Resp Denies cough, Denies dyspnea, Denies wheezing and Denies other (shortness of breath) Musc Denies numbness and Denies tingling Neuro Denies dizziness, Denies headache(s), Denies numbness, Denies tingling and Denies weakness Psych Denies anxiety and Denies depression Endo Denies fatigue Aller/Immun Denies wheezing Physical exam (Primary Care) Tobacco/Smoking Status: Tobacco use Status Tobacco use date assessed 07/08/23 08/04/23 16:53 Patient Tobacco Use Status Former Tobacco user 08/04/23 16:53 Tobacco use type 12/08/21 16:01 e-Cigarette/Vaping Use Never Used 08/04/23 16:53 Thrive Assessment: Date of Thrive Assessment Date Thrive assessed 07/08/23 08/04/23 16:53 Telehealth Telehealth Telehealth Platform: Telephone Location of provider rendering services: practice address Location of patient: address on file Patient Identification confirmed using: Name, : Yes Telehealth method: voice only Patient verbally consented to treatment: Yes Patient verbally consented to billing insurance company: Yes Patient informed of any privacy concerns related to visit: Yes Minutes spent on Phone/Video with Pt.: 15 Assessment and Plan Assessment & Plan (1) Hyperlipidemia: Code(s): E78.5 - Hyperlipidemia, unspecified Plan: Lipids?are?too?high Start?atorvastatin Will?recheck?in?3?months (2) Elevated fasting glucose: Code(s): R73.01 - Impaired fasting glucose Plan: Persistent?elevated?fasting?blood?sugars Will?check?A1c?with?next?blood?draw?and?discuss?with?patient Advised?diet?lower?in?sugars?and?starches (3) Swelling of both ankles: Code(s): M25.471 - Effusion, right ankle; M25.472 - Effusion, left ankle Plan: Ongoing?chronic?lower?extremity?edema Recommended?compression?stocking Elevate?legs?when?able Avoid?salt/sodium (4) Urinary frequency: Code(s): R35.0 - Frequency of micturition Plan: Urine?studies?slightly?suspicious?but?patient?is?having?significant?frequency/urgency?issues. Likely?has?UTI Sent?a?script?for?Bactrim Orders: Orders Comprehensive [place]. Panel Fast Today R73.01 - Impaired fasting glucose, Z00.00 - Encounter for general adult medical examination without abnormal findings Hemoglobin A1c Today R73.01 - Impaired fasting glucose Lipid Panel Today E78.5 - Hyperlipidemia, unspecified, Z00.00 - Encounter for general adult medical examination without abnormal findings Medications: New atorvastatin 20 mg PO QPM 90 days 90 tabs 2RF compr.stocking,knee,long,large 30-40?mmHg, ?Daily As directed, 90 days 12 ea 0RF M25.471 - Effusion, right ankle, M25.472 - Effusion, left ankle, R60.0 - Localized edema sulfamethoxazole-trimethoprim 800-160 mg (Bactrim DS) 1 tab PO Q12H 5 days 10 tabs 0RF Coding Level of Care Code Tele Est Pt Level 2 (99852) Diagnoses Hyperlipidemia E78.5 Elevated fasting glucose R73.01 Swelling of both ankles M25.471; M25.472 Urinary frequency R35.0
== END ==
PROVIDERS: PCP Family Medicine; Visit Provider Family Medicine
DX: E78.5 Hyperlipidemia, unspecified (principal); R73.01 Impaired fasting glucose; M25.471 Effusion, right ankle; M25.472 Effusion, left ankle; R35.0 Frequency of micturition
CPT/HCPCS: 99212

== ENCOUNTER 2023-11-02 06:36 | Outpatient (REF) | payer BC, SELFPAY ==
[2023-11-02 07:21] LABS: Estimated Average Glucose 114 mg/dL; Hemoglobin A1c % 5.6 % (<6.0)
[2023-11-02 07:37] LABS: Appearance Urine Clear; Color Urine Yellow; Glucose Urine UA Negative (Negative); Leukocyte Esterase Urine Trace (Negative); Nitrite Urine Negative (Negative); PH 5.5 (5.0-9.0); Specific Gravity - Urine 1.015 (1.005-1.025); UMIC TRIGGER UA YES; Urine Blood Negative (Negative); Urine Ketones Negative (Negative); Urine Protein Negative (Neg-Trace)
[2023-11-02 07:40] LABS: Alanine Aminotransferase 28 U/L (0-31); Albumin Level 3.9 g/dL (3.5-5.0); Alkaline Phosphatase 64 U/L (39-117); Anion Gap 10 (12-20); Aspartate Amino Transferase 21 U/L (5-31); Bilirubin Total 0.3 mg/dL (0.0-1.0); Blood Urea Nitrogen 11 mg/dL (9-16); Calcium 9.6 mg/dL (8.4-10.2); Carbon Dioxide 30 mmol/L (22-29); Chloride 108 mmol/L (96-108); Cholesterol 206 mg/dL (<200); Estimated Glomerular Filt Rate > 60; Glucose Fasting 109 mg/dL (60-99); HDL Cholesterol 65 mg/dL (>40); LDL Cholesterol Calculated 125 mg/dL (<100); Potassium 4.9 mmol/L (3.3-5.1); Sodium 143 mmol/L (135-145); Total Protein 6.7 g/dL (6.5-8.0); Triglycerides 82 mg/dL (<150)
[2023-11-02 07:43] LABS: Bacteria Urine None Seen (None Seen); Hyaline Casts Urine 0-2 /LPF (0-2); RBC Urine 0-2 /HPF (0-2); Squamous Epithelial Cell Urine 0-2 /HPF (0-2); WBC Urine 0-5 /HPF (0-5)
[2023-11-02 07:58] LABS: TSH reflex Free T4 1.33 uIU/mL (0.32-4.0)
== END 2023-11-02 06:37 | disposition home or self-care (01) ==
LOC: HO.LAB 06:36
PROVIDERS: PCP Family Medicine; Visit Provider Family Medicine
DX: Z00.00 Encounter for general adult medical examination without abnormal findings (principal); E87.5 Hyperkalemia; R73.01 Impaired fasting glucose
CPT/HCPCS: 36415; 80053; 80061; 81001; 83036; 84443

== ENCOUNTER 2023-11-04 11:29 | Outpatient (AMB) | payer OTHER, SELFPAY ==
--- NOTE | 2023-11-04 11:38 | A.OFFPC_ITS ---
Vital Signs 11/04/23 11:41 Height 5 ft 8 in Weight 232 lb 8 oz BMI 35.3 BP 120/70 Blood Pressure Location Rt brachial Position Sitting Respiration 16 Pulse 49 L Pulse Source Pulse Oximeter Temp 97.4 F Temp Source Tympanic Pulse Oximetry (%) 99 Oxygen Delivery Method Room Air Intake Visit Reasons: f/u HLD, elevated fasting glucose Intake Note: lab review Allergies doxycycline [DOXYCYCLINE] Allergy (Unknown, Verified 11/04/23 11:39) NAUSEA/VOMITING Tobacco use date assessed: 07/08/23 Dental Screening Dental Screen Date: 07/08/23 HPI f/u HLD, elevated fasting glucose HPI Details 43 y/o female presents to f/u HLD and el evated fasting glucose. Had started her on artovastatin. Labs drawn 11/02/23. Reviewed labs with pt. A1c 5.6%. Triglycerides 82. TC 206. LDL 125. HDL 65. She notes she is not on artovastatin. TSH 1.33. Pt notes she is prescribed semaglutide. [facility] Medical History Lyme disease Family History Mother Breast cancer Family/Other Breast cancer Social History (Updated 08/30/23 @ 15:24 by Ping Chamberlain CMA) Household Members: None Housing: Apartment Alcohol intake: former Comment: No alcohol since 01/2021 Patient Tobacco Use Status: Former Tobacco user Years Smoked: Quit in April of 2022. e-Cigarette/Vaping Use: Never Used service: No Current occupational status: employed Current occupational exposures/hazards: No Cognitive needs: No Hearing needs: No Vision needs: No Female Reproductive History Menstrual Age of Menarche: 11 Questionnaire Thrive Questionnaire Date Thrive assessed: 07/08/23 EMERSON-7 AMB Questionnaire EMERSON-7 Date EMERSON - 7 assessed: 07/08/23 Source: Developed by Drs. Saul Ponce, Berkley Hoffman, Ronan Rojas and colleagues, with an educational gerry from [employer]. Review of Systems Const Denies chills, Denies fatigue, Denies fever(s), Denies headache(s) and Denies weakness ENT Denies dizziness and Denies headache(s) Card Denies dyspnea Resp Denies cough, Denies dyspnea, Denies wheezing and Denies other (shortness of breath) Musc Denies numbness and Denies tingling Neuro Denies dizziness, Denies headache(s), Denies numbness, Denies tingling and Denies weakness Psych Denies anxiety and Denies depression Endo Denies fatigue Aller/Immun Denies wheezing Physical exam (Primary Care) Vital Signs: Last Vital Signs Temp 97.4 F 11/04/23 11:41 Pulse 49 L 11/04/23 11:41 Resp 16 11/04/23 11:41 BP 120/70 11/04/23 11:41 Pulse Ox 99 11/04/23 11:41 Oxygen Delivery Method Room Air 11/04/23 11:41 BMI result Body Mass Index 35.3 Tobacco/Smoking Status: Tobacco use Status Tobacco use date assessed 07/08/23 11/04/23 11:45 Patient Tobacco Use Status Former Tobacco user 11/04/23 11:45 Tobacco use type 12/08/21 16:01 e-Cigarette/Vaping Use Never Used 11/04/23 11:45 Thrive Assessment: Date of Thrive Assessment Date Thrive assessed 07/08/23 11/04/23 11:45 Const General: well developed; No acute distress Nutritional Appearance: well nourished Orientation/consciousness: patient oriented x3 [facility] Head: Yes normocephalic and Yes atraumatic Eyes General: appearance normal, both eyes and all related structures Pupils: Equal, round and reactive pupils present EOM: EOMs intact bilaterally Resp Effort & Inspection: normal respiratory effort Auscultation: clear to auscultation bilaterally Cardio Rate: regular rate Rhythm: regular rhythm Heart sounds: S1 normal heart sound present, S2 normal heart sound present, no gallops, no murmurs and no rubs Neuro General: patient oriented x3 and gait normal Cranial nerves: Yes Equal, round and reactive pupils present Psych Affect: normal affect Assessment and Plan Assessment & Plan (1) Hyperlipidemia: Code(s): E78.5 - Hyperlipidemia, unspecified Plan: Lipids?were?high?at?prior?check?and?I?had?sent?a?script?for?atorvastatin. Patient?has?not?started?this?but?she?has?brought?her?LDL?cholesterol?down?signif icantly.??Still?above?goal?of?less?than?100?however. Encou raged?her?to?continue?to?work?at?a?diet?low?in?saturated?fats?and?cholesterol. Patient?also?wanting?to?start?semaglutide which?was?prescribed?by?a?nurse?practitioner for?weight?loss.??Significant?weig ht?loss?should?also?help?to?bring?down?her?lipids. Will?continue?to?monitor We?discussed?that?if?her?lipids?were?to?go?up?again?we?should?discuss?medication . (2) Elevated fasting glucose: Code(s): R73.01 - Impaired fasting glucose Plan: Ongoing?elevated?fasting?blood?sugar?with?A1c?at?top?normal?range. As?above,?patient?plans?to?start?semaglutide?for?weight?loss?and?this?will?likel y?significantly?improve?her?blood?sugar?control?as?well. Encouraged?a?diet?low?in?sugars?and?starches,?exercise?and?weight?loss Will?continue?to?monitor (3) Obesity: Code(s): E66.9 - Obesity, unspecified Plan: As?above,?patient?is?planning?to?start?semaglutide If?she?has?any?difficulty?getting?this?prescription?I?will?try?to?make?the?presc ription?or?prior?authorization. Risks/benefits?were?discussed?by?nurse?practitioner?and?reviewed?with?me. Medications: Discontinued atorvastatin Discontinued Reason: Doctor's Order 20 mg PO QPM 90 days 90 tabs 2RF Coding Level of Care Code Est Pt Level 3 (43266) Diagnoses Hyperlipidemia E78.5 Elevated fasting glucose R73.01 Obesity E66.9
[2023-11-04 11:41] VITALS: BP 120/70; PULSE 49; RESP 16; TEMP 36.3; O2SAT 99; BMI 35.3
== END 2023-11-04 12:05 | disposition home or self-care (01) ==
PROVIDERS: PCP Family Medicine; Visit Provider Family Medicine
DX: E78.5 Hyperlipidemia, unspecified (principal); R73.01 Impaired fasting glucose; E66.9 Obesity, unspecified; Z68.35 Body mass index [BMI] 35.0-35.9, adult

== ENCOUNTER → 2023-11-04 11:29 | Outpatient (BNVA) | payer OTHER, SELFPAY | PROVIDERS: PCP Family Medicine; Visit Provider Family Medicine | DX: E78.5 Hyperlipidemia, unspecified (principal); R73.01 Impaired fasting glucose; E66.9 Obesity, unspecified | CPT/HCPCS: 99212 ==

== ENCOUNTER 2024-06-28 02:06 | Emergency (ER) | payer BC, SELFPAY ==
--- NOTE | 2024-06-28 | ECG_ITS ---
Test Reason : TACHYCARDIA, ABD PAIN Blood Pressure : */* mmHG Vent. Rate : 95 BPM Atrial Rate : 95 BPM P-R Int : 160 ms QRS Dur : 94 ms QT Int : 358 ms P-R-T Axes : 45 -3 59 degrees QTcB Int : 449 ms Normal sinus rhythm Normal ECG When compared with ECG of 18-Jun-2014 12:12, Vent. rate has increased by 34 bpm Referred By: Generic ED Physician Electronically Signed By: BREONNA GILLIS MD
--- NOTE | ~2024-06-28 | CT_ITS ---
CLINICAL HISTORY: Left-sided abdominal, diverticulitis? CT abdomen and pelvis with contrast Comparison: None Findings: The lung bases are clear. The gallbladder and solid organs are within normal limits. No renal stones. Colonic diverticulosis is present with fat stranding adjacent to the descending colon. Mild fluid is present along the left paracolic gutter. No pericolonic abscess is seen. There is no pneumoperitoneum. There is no evidence of bowel obstruction. The appendix appears normal. The urinary bladder is partially distended. There is no adenopathy. Moderate to severe degenerative changes are seen at L4/5. No acute osseous abnormality is identified. 1.0 cm well-defined lucency is seen at L4 with a nonaggressive appearance. IMPRESSION: 1. Acute descending colonic diverticulitis. No pericolonic abscess is seen. This document has been electronically signed by: Zoya Lo on 06/28/2024 05:30:17
[2024-06-28 02:10] VITALS: BP 118/80; PULSE 119; RESP 20; TEMP 36.9; O2SAT 94; BMI 30.4
[2024-06-28 02:46] LABS: MANUAL DIFF FLAG NO
[2024-06-28 02:47] LABS: Basophils Absolute Auto 0.1 X10*3/uL (0.0-0.2); Basophils Percent Auto 0.5 % (0-2); Eosinophils Absolute Auto 0.1 X10*3/uL (0.0-0.4); Eosinophils Percent Auto 0.8 % (0-4); Hematocrit 44.5 % (37.0-47.0); Hemoglobin 15.6 g/dl (12.0-16.0); Imm Gran Abs Auto 0.03 X10*3/uL (0.00-0.03); Imm Gran Pct Auto 0.3 % (0.0-0.4); Lymphocytes Absolute Auto 1.5 X10*3/uL (1.2-4.9); Lymphocytes Percent Auto 13.3 % (20-40); Mean Corpuscular HGB Conc 35.1 g/dl (31.0-35.0); Mean Corpuscular Hemoglobin 31.1 pg (27.0-33.0); Mean Corpuscular Volume 88.8 fL (80.0-98.0); Mean Platelet Volume 9.1 fL (9.4-12.3); Monocytes Absolute Auto 0.8 X10*3/uL (0.1-1.2); Monocytes Percent Auto 7.7 % (2-11); Neutrophils Absolute Auto 8.5 x10*3/uL (2.0-8.3); Neutrophils Percent Auto 77.4 % (45-73); Platelet Count 204 X10*3/uL (160-400); Red Blood Count 5.01 X10*6/uL (4.20-5.50); Red Cell Distribution Width 12.5 % (11.0-16.0)
--- NOTE | 2024-06-28 02:51 | ED.ABDPAIN ---
HPI - Abdominal Pain General Chief Complaint: Abdominal Pain Stated Complaint: abd pain Time Seen by Provider: 06/28/24 02:37 Source: patient Mode of arrival: ambulatory Limitations: no limitations History of Present Illness ED Provider: DR. Novoa HPI narrative: 44-year-old female came in for evaluation of an abdominal pain started 4 hours ago after patient ate large amount of pumpkin seeds, + chills, no nausea, no vomiting, no fever. Never had intra-abdominal surgery, never had this pain in the past. Related Data Previous Rx's ?Medication ?Instructions ?Recorded compr.stocking,knee,long,large #12 ea 08/08/23 amoxicillin 875 mg-potassium 1 tab PO BID #20 tabs 06/28/24 clavulanate 125 mg tablet metronidazole 500 mg tablet 500 mg PO BID 10 days #20 tabs 06/28/24 Allergies Allergy/AdvReac Type Severity Reaction Status Date / Time doxycycline [DOXYCYCLINE] Allergy Unknown NAUSEA/VOMI Verified 06/28/24 02:12 TING Review of Systems Review of Systems All other systems are reviewed and are negative Constitutional: Reports as per HPI and Reports no additional constitutional complaints Eyes: Reports as per HPI and Reports no additional eye complaints Reports system reviewed and no additional complaints, except as documented Cardiovascular: Reports as per HPI and Reports no additional cardiovascular complaints Respiratory: Reports as per HPI and Reports no additional respiratory complaints Gastrointestinal: Reports as per HPI and Reports no additional gastrointestinal complaints Genitourinary: Reports no additional female genitourinary complaints Musculoskeletal: Reports no additional musculoskeletal complaints Skin/Breast: Reports system reviewed and no additional complaints, except as docu Psychiatric: Reports no additional psychiatric complaints Endocrine: Reports no additional endocrine complaints Hematologic/Lymphatic: Reports no additional hematologic/lymphatic complaints Allergic/Immunologic: Reports no additional allergic/immunologic complaints Reports system reviewed and no additional complaints, except as documented and Reports Abnormal speech present [facility] Past Medical History Medical History Lyme disease Family History Family History Mother Breast cancer Family/Other Breast cancer Social History Social History Household Members: None Housing: Apartment Alcohol intake: current Alcohol intake frequency: a few times a week Alcohol type: hard liquor Comment: No alcohol since 01/2021 Patient Tobacco Use Status: Former Tobacco user Years Smoked: Quit in April of 2022. Smoked in Last 30 Days: Yes e-Cigarette/Vaping Use: Never Used Use of substances other than those prescribed or required for medical reasons: Yes Substance Use Type: Marijuana Substance Use Frequency: Weekly Advance Directives: No Advance Directives Information Provided: Yes Patient : No service: No Current occupational status: employed Current occupational exposures/hazards: No Cognitive needs: No Hearing needs: No Vision needs: No Physical Exam ED Vital Signs: Vital Signs - 24 hr 06/28/24 02:10 06/28/24 05:13 Temperature 98.4 F 98 F Pulse Rate 119 H 70 Respiratory Rate 20 16 Blood Pressure 118/80 101/60 Pulse Oximetry 94 95 Oxygen Delivery Method Room Air Room Air BMI result Body Mass Index 30.4 Vital signs have been reviewed and appear to be correct. Blood pressure elevated. Heart rate elevated. Respiratory rate normal. Temperature normal. Oxygen saturation normal. Appearance: Alert. Oriented X3. No acute distress. Head: Normal external exam. Normocephalic. Atraumatic. No Castro signs noted. No raccoon eyes noted Eyes: PERRLA. EOMI. Conjunctiva and sclera normal. Eyelids normal. ENT: TM's Normal. Pharynx normal. Uvula midline. Moist mucous membranes. No trismus noted. No drooling noted. No muffled voice noted. Neck: Normal inspection. Neck supple. FROM. No adenopathy. Thyroid Normal. No meningeal signs. No neck mass noted. CVS: Normal heart rate and rhythm. Heart sound normal. No murmurs noted. Pulses normal throughout. Respiratory: No respiratory distress. Painless inspiration. Breath sounds normal. No wheezes/rales/rhonchi noted. Chest nontender. No accessory muscle usage noted or decreased air movement noted. Abdomen: Soft, left lower quadrant tenderness, no rebound tenderness, no guarding. Bowel sounds normal in all 4 quadrants. No distention noted. No organomegaly noted. No visible injury noted. Back: No CVA tenderness. Full range of motion noted. Skin: Skin warm and dry. Normal skin color. Normal skin turgor. No rashes/lesions/lacerations noted. Extremities: No lower extremity edema. Extremities exhibit normal range of motion. Extremities nontender. Neuro: Oriented X 3. Cranial nerve exam: II-XII are grossly intact No motor deficit. No sensory deficit. Reflexes normal. Course Reevaluation(s) Reevaluation #1: Acute diverticulitis Patient do not meet criteria for sepsis, no severe symptoms either and patient agreed to take oral antibiotic and be discharged home. Will discharge on Augmentin/Flagyl times 10 days. Time: 06:53 Medical Decision Making Differential Diagnosis Differential Diagnoses: The differential diagnosis associated with the presentation includes (Colitis, diverticulitis, appendicitis, pancreatitis, electrolyte derangement, severe anemia.) Admission/Observation Consideration of admission/observation: Escalation of care including admission/observation considered Lab Data MDM Lab Attestation statement: I reviewed the patient's lab results. 06/28/24 02:17 06/28/24 02:17 Labs: Lab Results 06/28/24 06/28/24 Range/Units 02:17 05:54 WBC 11.0 H (4.8-10.8) X10*3/uL RBC 5.01 (4.20-5.50) X10*6/uL Hgb 15.6 D (12.0-16.0) g/dl Hct 44.5 (37.0-47.0) % MCV 88.8 (80.0-98.0) fL MCH 31.1 (27.0-33.0) pg MCHC 35.1 H (31.0-35.0) g/dl RDW 12.5 (11.0-16.0) % Plt Count 204 D (160-400) X10*3/uL MPV 9.1 L (9.4-12.3) fL Immature Gran % (Auto) 0.3 (0.0-0.4) % Neut % (Auto) 77.4 H (45-73) % Lymph % (Auto) 13.3 L (20-40) % Hudspeth % (Auto) 7.7 (2-11) % Eos % (Auto) 0.8 (0-4) % Baso % (Auto) 0.5 (0-2) % Lymph # (Auto) 1.5 (1.2-4.9) X10*3/uL Hudspeth # (Auto) 0.8 (0.1-1.2) X10*3/uL Eos # (Auto) 0.1 (0.0-0.4) X10*3/uL Baso # (Auto) 0.1 (0.0-0.2) X10*3/uL Abs Immat Gran (auto) 0.03 (0.00-0.03) X10*3/uL Absolute Neuts (auto) 8.5 H (2.0-8.3) x10*3/uL Absolute Nucleated RBC 0.000 (0.0-0.012) X10*3/uL Nucleated RBC % (auto) 0.0 (0.0-0.2) /100WBC Sodium 140 (135-145) mmol/L Potassium 4.2 (3.3-5.1) mmol/L Chloride 108 (96-108) mmol/L Carbon Dioxide 25 (22-29) mmol/L Anion Gap 11 L (12-20) BUN 9 (9-16) mg/dL Creatinine 0.79 (0.5-1.4) mg/dL Estim Creat Clear Calc 105.9 Estimated GFR > 60 Fasting Glucose 110 H (60-99) mg/dL Calcium 9.3 (8.4-10.2) mg/dL Total Bilirubin 0.8 (0.0-1.0) mg/dL AST 18 (5-31) U/L ALT 14 (0-31) U/L Alkaline Phosphatase 73 (39-117) U/L Total Protein 7.0 (6.5-8.0) g/dL Albumin 4.2 (3.5-5.0) g/dL Lipase 29 (8-78) U/L Beta HCG, Quant 3 mIU/mL Urine Color Yellow Urine Appearance Clear Urine pH 6.0 (5.0-9.0) Ur Specific Hamer >= 1.030 H (1.005-1.025) Urine Protein 30 (1+) H (Neg-Trace) mg/dL Urine Glucose (UA) Negative (Negative) mg/dL Urine Ketones Trace (Negative) mg/dL Urine Blood Trace H (Negative) Urine Nitrite Negative (Negative) Ur Leukocyte Esterase Negative (Negative) Urine RBC 6-10 H (0-2) /HPF Urine WBC 0-5 (0-5) /HPF Ur Squamous Epith Cells 3-5 (0-2) /HPF Urine Bacteria Trace (None Seen) Hyaline Casts 0-2 (0-2) /LPF Influenza Type A (PCR) NEGATIVE (Negative) Influenza Type B (PCR) NEGATIVE (Negative) RSV RNA Qual (PCR) NEGATIVE (Negative) SARS-CoV-2 RNA (RT-PCR) NEGATIVE (Negative) Independent Interpretation I performed an independent interpretation of an: CT Scan (Abdomen pelvis: Acute descending colon diverticulitis.) Radiology Impression Discussion of test interpretation with radiology: I have reviewed the radiologist's reading. Medications Administered Discontinued Medications Generic Name Dose Route Start Last Admin Trade Name Freq PRN Reason Stop Dose Admin Lactated Ringer's 1,000 mls @ 999 mls/hr 06/28/24 02:45 06/28/24 04:15 Lr IV 06/28/24 03:45 Infused .Q1H1M JOAN Infusion Iohexol 85 ml 06/28/24 03:39 06/28/24 03:39 Iohexol 350 Mg/Ml 100 Ml Infus..Btl IV 06/28/24 03:40 85 ml ONCE ONE Administration Ketorolac Tromethamine 15 mg 06/28/24 02:44 06/28/24 03:09 Ketorolac Tromethamine 15 Mg/Ml Vial IVPUSH 06/28/24 02:45 15 mg ONCE ONE Administration Discharge Plan Discharge Clinical Impression: Diverticulitis Patient Disposition: Home, Self-Care Instructions: Diverticulitis (ED), Diverticulitis Diet (ED) Prescriptions: New amoxicillin-pot clavulanate 875-125 mg tablet 1 tab PO BID Qty: 20 0RF metronidazole 500 mg tablet 500 mg PO BID 10 Days Qty: 20 0RF No Action (DME) compr.stocking,knee,long,large Misc See Rx Instructions .Route Qty: 12 0RF Rx Instructions: 30-40?mmHg, ?Daily As directed, 90 days Referrals: Yakelin Briggs MD [Physician] - Stand Alone Forms: Work/School Release Print Language: Faroese
[2024-06-28 03:06] LABS: Alanine Aminotransferase 14 U/L (0-31); Albumin Level 4.2 g/dL (3.5-5.0); Alkaline Phosphatase 73 U/L (39-117); Anion Gap 11 (12-20); Aspartate Amino Transferase 18 U/L (5-31); Bilirubin Total 0.8 mg/dL (0.0-1.0); Blood Urea Nitrogen 9 mg/dL (9-16); Calcium 9.3 mg/dL (8.4-10.2); Carbon Dioxide 25 mmol/L (22-29); Chloride 108 mmol/L (96-108); Creatinine Clr Calc Pharmacy 105.9; Estimated Glomerular Filt Rate > 60; Glucose Fasting 110 mg/dL (60-99); Lipase 29 U/L (8-78); Potassium 4.2 mmol/L (3.3-5.1); Sodium 140 mmol/L (135-145)
[2024-06-28 03:07] LABS: HCG Quantitative 3 mIU/mL
[2024-06-28] MEDS: Ketorolac Tromethamine 15 MG/ML VIAL IVPUSH (03:09)
[2024-06-28] MEDS: Lactated Ringers 1,000 ML 999 ML IV (03:09)
[2024-06-28 03:24] LABS: Influenza A PCR NEGATIVE (Negative); Influenza B PCR NEGATIVE (Negative); Resp Syncy Virus RNA Qual PCR NEGATIVE (Negative); SARS COV2 PCR INHOUSE NEGATIVE (Negative)
[2024-06-28] MEDS: iohexoL 350 MG/ML 100 ML INFUS..BTL 85 ML IV (03:39)
[2024-06-28 05:13] VITALS: BP 101/60; PULSE 70; RESP 16; TEMP 36.6; O2SAT 95
[2024-06-28 06:04] LABS: Appearance Urine Clear; Color Urine Yellow; Glucose Urine UA Negative (Negative); Leukocyte Esterase Urine Negative (Negative); Nitrite Urine Negative (Negative); Specific Gravity - Urine >= 1.030 (1.005-1.025); UMIC TRIGGER UACC YES; Urine Blood Trace (Negative); Urine Ketones Trace mg/dL (Negative); Urine Protein 30 (1+) mg/dL (Neg-Trace)
[2024-06-28 06:08] LABS: Bacteria Urine Trace (None Seen); Hyaline Casts Urine 0-2 /LPF (0-2); WBC Urine 0-5 /HPF (0-5)
[2024-06-28] MEDS: metroNIDAZOLE 500 MG TABLET PO (07:17)
[2024-06-28] MEDS: Amoxicillin/Potassium Clav 875 MG TABLET PO (07:17)
[2024-06-28 07:20] VITALS: BP 110/78; PULSE 76; RESP 18; TEMP 36.8; O2SAT 96
[2024-06-28 07:22] VITALS: BP 110/78; PULSE 76; RESP 18; TEMP 36.8; O2SAT 96
== END 2024-06-28 07:22 | disposition home or self-care (01) ==
PROVIDERS: Emergency Provider Emergency Medicine
DX: K57.32 Diverticulitis of large intestine without perforation or abscess without bleeding (principal); R10.9 Unspecified abdominal pain; Z03.818 Encounter for observation for suspected exposure to other biological agents ruled out
CPT/HCPCS: 0241U; 74177; 80053; 81001; 81003; 83690; 84702; 85025; 93005; 96361; 96374; 99284; 99285; J1885; J7120; Q9967

== ENCOUNTER → 2024-06-28 02:26 | Outpatient (BNV) | payer BC, SELFPAY | PROVIDERS: Emergency Provider Emergency Medicine; Visit Provider Internal Medicine Cardiovascular Disease | DX: R00.0 Tachycardia, unspecified (principal); R10.9 Unspecified abdominal pain | CPT/HCPCS: 93010 ==

== ENCOUNTER → 2024-06-28 02:44 | Outpatient (BNV) | payer BC, SELFPAY | PROVIDERS: Emergency Provider Emergency Medicine; Visit Provider Radiology Vascular & Interventional Radiology | DX: R10.9 Unspecified abdominal pain (principal) | CPT/HCPCS: 74177 ==

== ENCOUNTER 2024-07-11 11:04 | Outpatient (AMB) | payer BC, SELFPAY ==
--- NOTE | 2024-07-11 11:15 | MHC.PC.OV ---
Vital Signs 07/11/24 11:18 Height 5 ft 8 in Weight 203 lb BMI 30.9 BP 130/78 Blood Pressure Location Lt brachial Position Sitting Respiration 16 Pulse 72 Pulse Source Pulse Oximeter Temp 97.9 F Temp Source Oral Pulse Oximetry (%) 98 Oxygen Delivery Method Room Air Intake Visit Reasons: ED Follow-up [facility] /Diagnosed w/ diverticulitis Intake Note: patient is scheduled for follow-up with pcp to review ED discharge. Allergies doxycycline [DOXYCYCLINE] Allergy (Unknown, Verified 07/11/24 11:16) NAUSEA/VOMITING Medication List - Last Reconciled 07/11/24 by Fredy Schumacher MD compr.stocking,knee,long,large 30-40?mmHg, ?Daily As directed, 90 days Tobacco use date assessed: 07/11/24 Dental Screening Dental Screen Date: 07/11/24 Did you have a dental visit in the last 12 months?: Yes Did you have a dental problem in the last 6 months where you did not have access to dental care?: No Was dental information given to patient?: No HPI ED Follow-up [facility] /Diagnosed w/ diverticulitis HPI Details 44 y/o female presents to f/u ED visit 06/28/24 for diverticulitis. Prescribed amoxicillin-pot clavulanate 875-125 mcg tablet, metronidazole 500mg. Hx of elevated fasting glucose. A1c 4.7%. Pt notes she is feeling well. HPI Comments History of Present Illness Details Documentation assistance for Fredy Schumacher MD, was provided by Saleem Finley,? Costume Cutter on 07/11/2024 at 11:29 AM EST. I, Dr. Schumacher, have read, observed, and verified documentation. ? PFSH Medical History Lyme disease Family History Mother Breast cancer Family/Other Breast cancer Social History Household Members: None Housing: Apartment Alcohol intake: current Alcohol intake frequency: a few times a week Alcohol type: hard liquor Comment: No alcohol since 01/2021 Patient Tobacco Use Status: Former Tobacco user Years Smoked: Quit in April of 2022. e-Cigarette/Vaping Use: Never Used Substance Use Type: Marijuana service: No Current occupational status: employed Current occupational exposures/hazards: No Cognitive needs: No Hearing needs: No Vision needs: No Female Reproductive History Menstrual Age of Menarche: 11 Questionnaire PHQ-9 Over the last 2 weeks, how often have you been bothered by any of the following problems? 1. Little interest or pleasure in doing things: nearly every day 2. Feeling down, depressed, or hopeless: not at all 3. Trouble falling or staying asleep, or sleeping too much: nearly every day 4. Feeling tired or having little energy: several days 5. Poor appetite or overeating: not at all 6. Feeling bad about yourself - or that you are a failure or have let yourself or your family down: not at all 7. Trouble concentrating on things, such as reading the newspaper or watching television: more than half the days 8. Moving or speaking so slowly that other people could have noticed. Or the opposite - being so fidgety or restless that you have been moving around a lot more than usual: not at all 9. Thoughts that you would be better off or of hurting yourself in some way: not at all Total score: 9 Depression Screening Interpretation: Negative Depression Screening Done: Yes 95320 - PHQ-9 Billing: Yes Source: Developed by Drs. Saul Ponce, Berkley Hoffman, Ronan Rojas and colleagues, with an educational gerry from [employer]. Thrive Questionnaire Date Thrive assessed: 07/11/24 I am a: Patient What is your living situation today?: I do not have a steady places to live I choose not to answer this question Within the past 12 months, did the food you bought not last and you didn't have the money to get more?: Never true Within the past 12 months, did you worry whether your food would run out before you got money to buy more?: Never true Do you have trouble paying for medicines?: No Do you have trouble getting transportation to medical appointments?: No Do you have trouble paying your heating and electricity bill?: No Do you have trouble taking care of your child, family member or friend?: No Do you have trouble with day-to-day activities such as bathing, preparing meals, shopping, managing finances, etc.?: No Are you currently unemployed and looking for a job?: No Are you interested in more education?: Yes Please select the resources that you would like help with: None Currently or been in a relationship where the following occur: I choose not to answer THRIVE Score: 1 AUDIT C Alcohol Use Questionnaire (AUDIT-C) 1. How often do you have a drink containing alcohol?: 2-3 times a week 2. How many drinks containing alcohol do you have on a typical day when you are drinking?: 1 or 2 3. How often do you have six or more drinks on one occasion?: Less than monthly Total Score: 4 EMERSON-7 AMB Questionnaire EMERSON-7 Date EMERSON - 7 assessed: 07/08/23 Feeling nervous, anxious, or on edge: 1 = Several days Not being able to stop or control worryin = Not at all Worrying too much about different things: 1 = Several days Trouble relaxin = Several days Being so restless that it is hard to sit still: 1 = Several days Becoming easily annoyed or irritable: 1 = Several days Feeling afraid as if something awful might happen: 0 = Not at all Total EMERSON-7 score (0-4 normal; 5-9 mild; 10-14 moderate; 15-21 severe): 5 Source: Developed by Drs. Saul Ponce, Berkley Hoffman, Ronan Rojas and colleagues, with an educational gerry from [employer]. EMERSON-7 Assessment Billing EMERSON-7 Assessment Tool: EMERSON-7 Assessment 45199 Review of Systems Const Denies chills, Denies fatigue, Denies fever(s), Denies headache(s) and Denies weakness ENT Denies dizziness and Denies headache(s) Card Denies dyspnea Resp Denies cough, Denies dyspnea, Denies wheezing and Denies other (shortness of breath) Musc Denies numbness and Denies tingling Neuro Denies dizziness, Denies headache(s), Denies numbness, Denies tingling and Denies weakness Psych Denies anxiety and Denies depression Endo Denies fatigue Aller/Immun Denies wheezing Physical exam (Primary Care) Vital Signs: Last Vital Signs Temp 97.9 F 07/11/24 11:18 Pulse 72 07/11/24 11:18 Resp 16 07/11/24 11:18 BP 130/78 07/11/24 11:18 Pulse Ox 98 07/11/24 11:18 Oxygen Delivery Method Room Air 07/11/24 11:18 BMI result Body Mass Index 30.9 Tobacco/Smoking Status: Tobacco use Status Tobacco use date assessed 07/11/24 07/11/24 11:18 Patient Tobacco Use Status Former Tobacco user 07/11/24 11:18 Tobacco use type 12/08/21 16:01 e-Cigarette/Vaping Use Never Used 07/11/24 11:18 PHQ-9: PHQ-9 Score PHQ-9: Total score 9 07/11/24 11:18 Depression Screening Interpretation: Negative Thrive Assessment: Date of Thrive Assessment Date Thrive assessed 07/11/24 07/11/24 11:18 Currently or been in a relationship where the following occur: I choose not to answer Const General: well developed; No acute distress Nutritional Appearance: well nourished Orientation/consciousness: patient oriented x3 HENMT Head: Yes normocephalic and Yes atraumatic Eyes General: appearance normal, both eyes and all related structures Pupils: Equal, round and reactive pupils present EOM: EOMs intact bilaterally Resp Effort & Inspection: normal respiratory effort Auscultation: clear to auscultation bilaterally Cardio Rate: regular rate Rhythm: regular rhythm Heart sounds: S1 normal heart sound present, S2 normal heart sound present, no gallops, no murmurs and no rubs Neuro General: patient oriented x3 and gait normal Cranial nerves: Yes Equal, round and reactive pupils present Psych Affect: normal affect Coding Level of Care Code Est Pt Level 4 (87286) Diagnoses Diverticulitis K57.92 Elevated fasting glucose R73.01 Hyperlipidemia E78.5 Additional Codes EMERSON-7 Assessment Billing - EMERSON-7 Assessment Tool: EMERSON-7 Assessment 23269 ([id number]) PHQ-9 - 47990 - PHQ-9 Billing: Yes ([id number]) Assessment & Plan Assessment & Plan (1) Diverticulitis: Code(s): K57.92 - Diverticulitis of intestine, part unspecified, without perforation or abscess without bleeding Category: Medical Plan: Patient?was?treated?with?Augmentin?and?metronidazole She?is?feeling?well Encouraged?healthy?diet?and?plenty?of?fluids. Resolved (2) Elevated fasting glucose: Code(s): R73.01 - Impaired fasting glucose Category: Medical Plan: History?of?elevated?fasting?blood?sugars. A1c?was?about?5.6%?at?last?check She?has?lost?about?30?lb?since?then?and?A1c?now?4.7% Still?has?elevated?fasting?blood?sugars?however Encouraged?diet?lower?in?sugars?and?starches No?need?for?medications We?can?monitor?periodically (3) Hyperlipidemia: Code(s): E78.5 - Hyperlipidemia, unspecified Category: Medical Plan: Due?to?recheck?lipids She?will?get?these?drawn?and?we?can?follow-up?at?her?next?visit Orders: Orders Comprehensive [place]. Panel Fast Today Z00.00 - Encounter for general adult medical examination without abnormal findings Lipid Panel Today Z00.00 - Encounter for general adult medical examination without abnormal findings UA CC w/rflx Micro + Cult Today Z00.00 - Encounter for general adult medical examination without abnormal findings Microalbumin, Random (w Creat) Today I10 - Essential (primary) hypertension
[2024-07-11 11:18] VITALS: BP 130/78; PULSE 72; RESP 16; TEMP 36.6; O2SAT 98; BMI 30.9
== END 2024-07-11 11:39 | disposition home or self-care (01) ==
LOC: HO.HMCFM 11:05
PROVIDERS: Visit Provider Family Medicine
DX: K57.92 Diverticulitis of intestine, part unspecified, without perforation or abscess without bleeding (principal); R73.01 Impaired fasting glucose; E78.5 Hyperlipidemia, unspecified

== ENCOUNTER → 2024-07-11 11:04 | Outpatient (BNVA) | payer BC, SELFPAY | PROVIDERS: Visit Provider Family Medicine | DX: K57.92 Diverticulitis of intestine, part unspecified, without perforation or abscess without bleeding (principal); R73.01 Impaired fasting glucose; E78.5 Hyperlipidemia, unspecified; Z13.31 Encounter for screening for depression | CPT/HCPCS: 83036; 96127 ==

== ENCOUNTER 2024-11-09 12:53 | Outpatient (AMB) | payer BC, SELFPAY ==
--- NOTE | 2024-11-09 13:01 | A.OFFPC_ITS ---
Vital Signs 11/09/24 13:08 Height 5 ft 8 in Weight 202 lb 2 oz BMI 30.7 BP 118/70 Blood Pressure Location Rt brachial Position Sitting Respiration 12 Pulse 76 Pulse Source Pulse Oximeter Temp 97.2 F Temp Source Oral Pulse Oximetry (%) 99 Oxygen Delivery Method Room Air Intake Visit Reasons: Diverticulitis Flare up Intake Note: Follow up on diverticulitis flare up. [employer] Required: No Allergies doxycycline (DOXYCYCLINE) Allergy (Unknown, Verified 11/09/24 13:01) NAUSEA/VOMITING Tobacco use date assessed: 11/09/24 Dental Screening Dental Screen Date: 11/09/24 Did you have a dental visit in the last 12 months?: Yes Did you have a dental problem in the last 6 months where you did not have access to dental care?: No Was dental information given to patient?: Patient has dentist HPI HPI Comments History of Present Illness Details HEre today for abd pain Was in Detox for etoh Meds made her constipated, was given MOM had results within 1 hour Sx started worse after this would have went to the hospital so could not go stayed in bed She was given Augmentin x 48 hours only Pain went from 10/10 to 2/10 Not pooping normally Last colon 2008 thinks they were fine No blood, fever, n/v wonders if sx were from her detox Currently eating light diet No abd surgery hx Alcohol Use Disorder: - Recent detoxification for alcohol abus e. - Received Librium and Clonidine during detox. Review of Systems - Gastrointestinal: Reports previous sev ere abdominal pain, constipation, nausea, and vomiting; denies current rectal bleeding. - Constitutional: Denies current fever. - Gastrointestinal: Reports improvement in bowel movements. - Neurological: No dizziness or fainting reported. - Psychiatric: Recent detoxification fro m alcohol. - Musculoskeletal: Reports abdominal dis comfort on physical examination. Physical Exam General: Well developed, well nourished, in no acute distress. Appears stated age. Head: Normocephalic, atraumatic. Eyes: Pupils are equal, round and reactive to light and accommodation. scleras nonicteric . Abdomen: Bowel sounds present in all quadrants. The abdomen is soft, but tender in the lower region w/o rebound, with no masses or organomegaly noted. No hernias are noted. Musculoskeletal: Joints are nontender, without swelling, redness, or effusions. Pulses: Peripheral pulses are equal and palpable bilaterally. Extremities: No clubbing, cyanosis nor edema is noted. Psych: Mood and affect appropriate. Diagnostic results Pending Discussion Notes I discussed with the patient concerns regarding a potential diverticulitis flare-up and the impact of recent detoxification treatment on her symptoms. We reviewed the improvements seen after antibiotic therapy and the need to address ongoing constipation to prevent further complications. I explained potential outcomes based on x-ray findings, outlining three pathways: additional antibiotics if diverticulitis is confirmed without abscess, hospitalization if abscess is present, or aggressive constipation treatment if only constipation is confirmed. Patient is instructed to follow up after obtaining an abdominal x-ray for further management. Considerations for possible hospital admission were explained if an abscess is identified, though this appears unlikely. I provided anticipatory guidance regarding symptom monitoring and the use of the patient portal for receiving test results. Patient was given time to ask questions. All questions were answered to their satisfaction. Assessment and Plans - Plan abdominal x-ray to confirm diagno sis. - Assess need for further antibiotics po st-x-ray evaluation. - Results will be sent to portal w/ plan . 2. Alcohol Use Disorder - Completed recent detox. - No ongoing medication needed. 3. Constipation - Plan aggressive management post-x-ray. Patient Instructions - Go to the designated location for an a bdominal x-ray as discussed. - Monitor for worsening symptoms or any new symptoms and inform via the patient portal. - Maintain a light diet and increase fib er intake cautiously. - Avoid alcohol and follow up for furthe r evaluation per results. Consent Patient was informed and verbally consented to the use of an ambient scribe for clinic note documentation during this visit. Total time spent caring for the patient today was 30 minutes. This includes time spent before the visit reviewing the chart, time spent during the visit, and time spent after the visit on documentation, reviewing laboratory results, diagnostic imaging, medications, performing a medically necessary evaluation, counseling on diagnoses, care coordination, ordering appropriate tests, ordering appropriate medications, review of tests performed by other providers, reporting test results with the patient, communication with other healthcare providers. [facility] Medical History Lyme disease Family History Mother Breast cancer Family/Other Breast cancer Social History Household Members: None Housing: Apartment Alcohol intake: current Alcohol intake frequency: a few times a week Alcohol type: hard liquor Comment: No alcohol since 01/2021 Patient Tobacco Use Status: Former Tobacco user Years Smoked: Quit in April of 2022. e-Cigarette/Vaping Use: Never Used Substance Use Type: Marijuana service: No Current occupational status: employed Current occupational exposures/hazards: No Cognitive needs: No Hearing needs: No Vision needs: No Female Reproductive History Menstrual Age of Menarche: 11 Questionnaire Thrive Questionnaire Date Thrive assessed: 07/11/24 I am a: Patient What is your living situation today?: I do not have a steady places to live I choose not to answer this question Within the past 12 months, did the food you bought not last and you didn't have the money to get more?: Never true Within the past 12 months, did you worry whether your food would run out before you got money to buy more?: Never true Do you have trouble paying for medicines?: No Do you have trouble getting transportation to medical appointments?: No Do you have trouble paying your heating and electricity bill?: No Do you have trouble taking care of your child, family member or friend?: No Do you have trouble with day-to-day activities such as bathing, preparing meals, shopping, managing finances, etc.?: No Are you currently unemployed and looking for a job?: No Are you interested in more education?: Yes Please select the resources that you would like help with: None Currently or been in a relationship where the following occur: I choose not to answer THRIVE Score: 1 EMERSON-7 AMB Questionnaire EMERSON-7 Date EMERSON - 7 assessed: 07/08/23 Source: Developed by Drs. Saul Ponce, Berkley Hoffman, Ronan Rojas and colleagues, with an educational gerry from [employer]. Physical exam (Primary Care) Vital Signs: Last Vital Signs Temp 97.2 F 11/09/24 13:08 Pulse 76 11/09/24 13:08 Resp 12 11/09/24 13:08 BP 118/70 11/09/24 13:08 Pulse Ox 99 11/09/24 13:08 Oxygen Delivery Method Room Air 11/09/24 13:08 BMI result Body Mass Index 30.7 Tobacco/Smoking Status: Tobacco use Status Tobacco use date assessed 11/09/24 11/09/24 13:04 Patient Tobacco Use Status Former Tobacco user 11/09/24 13:04 Tobacco use type 12/08/21 16:01 e-Cigarette/Vaping Use Never Used 11/09/24 13:04 Thrive Assessment: Date of Thrive Assessment Date Thrive assessed 07/11/24 11/09/24 13:04 Currently or been in a relationship where the following occur: I choose not to answer Coding Level of Care Code Est Pt Level 4 (72366) Complex EM visit Add On G2211 Diagnoses Lower abdominal pain R10.30 Other constipation K59.09 Constipation type: other constipation type Hx of diverticulitis of colon Z87.19 Influenza vaccination declined Z28.21 Alcohol dependence in remission F10.21 Substance use status: in remission Assessment & Plan Assessment & Plan (1) Lower abdominal pain: Code(s): R10.30 - Lower abdominal pain, unspecified Category: Medical (2) Constipation: Code(s): K59.00 - Constipation, unspecified Category: Medical Qualifiers: Constipation type: other constipation type Qualified Code(s): K59.09 - Other constipation (3) Hx of diverticulitis of colon: Code(s): Z87.19 - Personal history of other diseases of the digestive system Category: Medical (4) Influenza vaccination declined: Code(s): Z28.21 - Immunization not carried out because of patient refusal Category: Medical (5) EtOH dependence: Code(s): F10.20 - Alcohol dependence, uncomplicated Category: Medical Qualifiers: Substance use status: in remission Qualified Code(s): F10.21 - Alcohol dependence, in remission Plan . Orders: Orders XR KUB Today K59.00 - Constipation, unspecified, R10.30 - Lower abdominal pain, unspecified, Z87.19 - Personal history of other diseases of the digestive system
[2024-11-09 13:08] VITALS: BP 118/70; PULSE 76; RESP 12; TEMP 36.2; O2SAT 99; BMI 30.7
--- OUTSIDE RECORDS SUMMARY | 2024-11-09 14:14 | XMS_ITS | Clinical Summary ---
Author Organization [facility] Address [address] [facility] [place] [address] [place] [phone] Phone Care Team Providers Care Cane Flume Feeding Machine Operator Name Role Phone Fredy Schumacher MD Primary Care Provider Saleem Bray MD Unavailable Tiffanie Ornelas RN Unavailable [email or web address] [email or web address] Meghann Gray RN Unavailable [email or web address] Meghann Szymanski RN Unavailable VENANCIO [email or web address] Radha Dodd CNP Unavailable [phone] Allergies Active Allergy Reactions Criticality Noted Date Comments Doxycycline Cramps,Nausea and/or Vomiting Low 10/15 Medications MELATONIN ORAL Take 8 mg by mouth nightly at bedtime as needed. Active loratadine (CLARITIN ORAL) Take 10 mg by mouth daily as needed (allergies). Takes a couple days before chemo and a couple weeks after Active oxyCODONE 5 MG immediate release tablet Take 1 tablet (5 mg total) by mouth every 6 (six) hours as needed. Pt. may request partial fill. Do not drive or drink alcohol while taking this medication. 10 tablet 07/14/2023 Active montelukast (SINGULAIR) 10 mg tabletIndicatio ns:Carcinoma of central portion of left breast in female, estrogen receptor negative take 1 tablet by mouth everyday at bedtime 90 tablet 10/05/2023 Active Active Problems Problem Noted Date Diagnosed Date Breast cancer in female 03/10/2023 Gastroesophageal reflux disease 03/07/2023 Carcinoma of central portion of left breast in female, estrogen receptor negative 02/22/2023 PALB2-related breast cancer 02/22/2023 Family History Medical History Relation Comments Breast cancer Maternal Aunt 1 Breast cancer Maternal Aunt 2 Breast cancer Mother Bleeding/Clotting Disorder Neg Hx Ovarian cancer Neg Hx Relation Status Comments Maternal Aunt 1 great aunt Maternal Aunt 2 Alive great aunt Mother Social History Tobacco Use Types Packs/Day Years Used Date Smoking Tobacco: Former Cigarettes 1 10 0 05/10/2012 - 05/10/2022 Smokeless Tobacco: Never Tobacco Cessation:Counseling Given: Not Answered Alcohol Use Standard Drinks/Week Comments Not Currently 0 (1 standard drink = 0.6 oz pure alcohol) Drank in excess. Quit 01/20/2021 Child or Family Care Answer Date Record ed Do you have problems with on e of the following making it difficult for you to work, study, or receive health care? No 02/21/2023 Education Answer Date Recorded Are you interested in help w ith more adult education (for example, completing high school, GED, job training, learning the [place] language, technical skills, or developing parenting skills)? Yes 02/21/2023 Are you concerned about learning? Not on file 02/21/2023 Yes 02/21/2023 No 02/21/2023 Food Answer Date Recorded Within the past 6 months we worried whether our food would run out before we got money to buy more. Sometimes True 024 Within the past 6 months the food we bought just didn't last and we didn't have enough money to get more. Never True 09/2023 Residential Stability Answer Date Recor ded What is your housing situation today? I have alberto sing 02/21/2023 How many times have you moved in the past 12 mon ths? One time 02/21/2023 Paying for Meds Answer Date Recorded Do you have trouble paying for medicines? No 02/21/2023 Paying Utility Bills Answer Date Record ed Do you have trouble paying your heating or elect ricity bill? No 02/21/2023 Transportation Answer Date Recorded Has the lack of transportati on kept you from medical appointments or from getting medications? No 02/21/2023 Unemployment Answer Date Recorded Are you currently unemployed or working on a part-time or temporary basis, and looking for work? Yes 02/21/2023 Digital Access Answer Date Recorded No 02/03/2023 No 02/03/2023 Reliable internet access at home? Not on file 02/03/2023 Device with a working camera? Not on file Intimate Partner Violence Answer Date R ecorded Are you denied basic needs s uch as food, clothing, or medical care? No 07/14/2023 In the past 12 months have y ou been in a relationship with a person who hurts, threatens, or tries to control you? No 07/14/2023 Are you denied basic needs s uch as food, clothing, or medical care? No 07/14/2023 In the past 12 months have y ou been in a relationship with a person who hurts, threatens, or tries to control you? No 07/14/2023 Comments No Sex and Gender Information Value Date Recorded Sex Assigned at Female 02/03/2023 9:26 AM EST Legal Sex Female 9:23 PM EDT Gender Identity Female 02/03/2023 9:26 AM EST Sexual Orientation Choose not to disclose 2023 9:05 PM EST Last Filed Vital Signs Vital Sign Reading Time Taken Comments Blood Pressure 126/80 07/14/2023 10:00 AM EDT Pulse 87 07/14/2023 10:00 AM EDT Temperature 36.4 C (97.5 F) 07/14/2023 10:00 AM EDT Respiratory Rate 16 07/14/2023 10:00 AM EDT Oxygen Saturation 96% 07/14/2023 10:00 AM EDT Inhaled Oxygen Concentration - - Weight 103 kg (227 lb) 07/14/2023 6:58 AM EDT Height 172.7 cm (5' 8 ) 07/14/2023 6:58 AM EDT Body Mass Index 34.52 07/14/2023 6:58 AM EDT Plan of Treatment Health Maintenance Due Date Last Done Comments LIPID PANEL 1979 DEPRESSION SCREENING 1991 SMOKING Hx and SMOKELESS TOBACCO SCREENING 05/14/1992 HEPATITIS C SCREENING 05/14/1997 HIV ONE-TIME SCREENING (18-65 YEARS) 05/14/1997 PNEUMOCOCCAL VACCINES (0-49 years) (1 of 2 - PCV) 05/14/1998 PAP SMEAR 05/14/2000 SCREENING FOR DIABETES 05/14/2014 COLOGUARD 05/14/2024 COLONOSCOPY 05/14/2024 COLORECTAL CANCER SCREENING 05/14/2024 FIT TEST 05/14/2024 FOBT 05/14/2024 SIGMOIDOSCOPY 05/14/2024 VIRTUAL COLONOSCOPY 05/14/2024 INFLUENZA VACCINE (#1) 2024 COVID-19 VACCINE (2 - season) 2024 09/24/2020 MAMMOGRAM 03/01/2025 03/01/2023, 01/14, 01/19/2023, Additional history exists Adult Td,Tdap Booster 10/18/2030 10/18/2020 HEPATITIS A VACCINES Aged Out No long er eligible based on patient's age to complete this topic HIB VACCINES Aged Out No longer eligi ble based on patient's age to complete this topic MENINGOCOCCAL VACCINES (ACWY) Aged Out No longer eligible based on patient's age to complete this topic MENINGOCOCCAL VACCINES (B) Aged Out N o longer eligible based on patient's age to complete this topic Medical Devices Implanted Type Area Waste Chopper Device Identifier Shelf Expiration Date Model / Serial / Lot Graft Tissue 8x20cm Alloderm Ready To Use Regenerative Matrix Med - [id number] Implanted:Qty: 1 on 03/10/2023 by Aparna Roland MD at [facility] Right: Breast [employer] 03/16/2024 [id number] / / [id number] Description:Alloderm select. First soaked at 1153. Second soak 1250. Third soak 1335 Graft Tissue 8x20cm Alloderm Ready To Use Regenerative Matrix Med - [id number] Implanted:Qty: 1 on 03/10/2023 by Aparna Roland MD at [facility] Left: Breast [employer] 09/13/2024 [id number] / / [id number] Description:Alloderm select. First soaked at 1153. Second soak 1250. Third soak 1335. Breast Implant 750cc Natrelle Gel Inspira Style Srx 800 Round Extra Full - [id number] Implanted:Qty: 1 on 07/14/2023 by Adore Lozano MD at [facility] Left: Breast [employer] 04/01/2027 SRX-750 / [id number] / Breast Implant 750cc Natrelle Gel Inspira Style Srx 800 Round Extra Full - [id number] Implanted:Qty: 1 on 07/14/2023 by Adore Lozano MD at [facility] Right: Breast [employer] 02/11/2025 SRX-750 / [id number] / Explanted Type Area Waste Chopper Device Identifier Shelf Expiration Date Model / Serial / Lot Electronic Industrial Controls Mechanic Tissue 600cc W15cm H14cm P6.3cm Smooth Natrelle Fourte W/Suture Tabs - [id number] Implanted:Qty: 1 on 03/10/2023 by Aparna Roland MD at [facility] Explanted:Qty: 1 on 07/14/2023 at [facility] Right: Breast [employer] 07/12/2027 133S-MV-15- T / [id number] / [id number] [employer] Mechanic Tissue 600cc W15cm H14cm P6.3cm Smooth Natrelle Fourte W/Suture Tabs - [id number] Implanted:Qty: 1 on 03/10/2023 by Aparna Roland MD at [facility] Explanted:Qty: 1 on 07/14/2023 at [facility] Left: Breast [employer] 01/22/2027 133S-MV-15- T / [id number] / Procedures Procedure Name Priority Date/Time Associated Diagnosis Comments BI MRI BREAST WITH AND WITHOUT CONTRAST (BILATERAL) Routine 03/01/2023 4:37 PM EST Carcinoma of central portion of left breast in female, estrogen receptor negative PALB2-related breast cancer from Last 3 Months or Most Recently Relevant to Health Maintenance Results * (ABNORMAL) BI MRI BREAST WITH AND WITHOUT CONTRAST (BILATERAL) (03/01/2023 4:37 PM EST) Anatomical Region Laterality Modality Breast Left, Breast Right, Breast Bilateral Bila teral Magnetic Resonance 03/03/2023 11:1 8 AM EST Impressions 03/03/2023 11:18 AM EST 1. Enhancing 1.1 cm irregular mass in the left upper outer breast with washout kinetics most likely represents biopsy-proven malignancy. If breast conserving therapy is pursued, recommend placement of a biopsy clip, which can be performed under ultrasound guidance. 2. Indeterminate 0.7 cm enhancing oval mass in the left central outer breast at middle depth is inferolateral to the biopsy-proven malignancy and likely corresponds with the sonographic oval hypoechoic mass in the left breast at 3:00, 5 cm from the nipple. Recommend targeted left breast ultrasound and ultrasound-guided biopsy. 3. Indeterminate 0.8 cm enhancing oval mass in the left central outer breast at anterior depth. Recommend targeted left breast ultrasound to identify a sonographic correlate. If no correlate, recommend MRI-guided biopsy. 4. Probably benign T2 hyperintense, enhancing 0.8 cm oval mass in the right upper inner breast likely corresponds to the mammographic focal asymmetry in the right central inner breast, which is unchanged since the outside mammogram dated 12/31/2021. BI-RADS 4B SUSPICIOUS Please note that mammography offers complementary information to MRI and certain findings may be visible primarily on mammography. The patient should keep all scheduled mammography appointments and continue annual screening mammography. The breast imaging department will contact the patient to schedule the recommended biopsy. Results and recommendations were communicated to the referring provider and documented using the Alert Notification of Critical Radiology Results (ANCR) system. ATTESTATION: Yamilet aSnderson, as teaching physician have reviewed the images, if any, for this patient's exam, and if necessary, have edited the report originally created by Zuly Pompa. 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 TECHNIQUE: MR imaging of the breasts was performed using T1, T2 and fat- saturated techniques. Dynamic multiphase imaging was also performed after administration of intravenous gadolinium contrast agent. Computer generated 3D reconstruction and enhancement kinetic analysis was utilized by the radiologist in the interpretation of this examination. COMPARISON: Comparison is made with relevant prior imaging. Breast composition: Heterogeneous fibroglandular tissue. Background parenchymal enhancement: Marked. FINDINGS: Right * T2 hyperintense, heterogeneously enhancing oval mass with circumscribed margins in the right upper inner breast at middle depth measures 0.8 x 0.7 x 0.8 cm with persistent kinetics (5:44:, 11:155). This likely corresponds to the mammographic focal asymmetry in the right central inner breast, which is unchanged since December 31, 2021 and is compatible with a benign etiology. * There is no axillary or internal mammary lymphadenopathy on the right. Left * Heterogeneously enhancing, irregular mass with irregular margins in the left upper outer breast at posterior depth measures 1.1 x 0.8 x 1.0 cm with predominantly washout on kinetics (5:43, 11:42). This most likely represents the biopsy-proven malignancy. No associated biopsy clip placed due to patient declining clip placement at the time of the biopsy. * Homogenously enhancing oval mass with circumscribed margins in the left central outer breast at middle depth measures 0.7 x 0.4 x 0.4 cm with mixed kinetics (5:47, 11:38). This mass is inferolateral to the biopsy-proven malignancy by 0.5 cm (11:40). It may correspond to the previously demonstrated oval hypoechoic mass in the left breast at 3:00, 5 cm from the nipple, on the outside ultrasound dated 01/19/2023. * A second homogenously enhancing oval mass with circumscribed margins in the left central outer breast at anterior depth measures 0.8 x 0.5 x 0.4 cm with mixed kinetics (5:51, 11:41). * There is no axillary or internal mammary lymphadenopathy on the left. Procedure Note Yamilet Cabrera MD - 03/03/2023 BI MRI BREAST WITH AND WITHOUT CONTRAST (BILATERAL) Additional patient information: 42-year-old female with recently diagnosedtriple negative left breast invasive ductal carcinoma (no clip placed dueto patient declining clip placement) in the setting of PALB2 genemutation. TECHNIQUE: MR imaging of the breasts was performed using T1, T2 andfat-saturated techniques. Dynamic multiphase imaging was also performedafter administration of intravenous gadolinium contrast agent. Computergenerated 3D reconstruction and enhancement kinetic analysis was utilizedby the radiologist in the interpretation of this examination. COMPARISON: Comparison is made with relevant prior imaging. Breast composition: Heterogeneous fibroglandular tissue. Background parenchymal enhancement: Marked. FINDINGS: Right * T2 hyperintense, heterogeneously enhancing oval mass with circumscribedmargins in the right upper inner breast at middle depth measures 0.8 x 0.7x 0.8 cm with persistent kinetics (5:44:, 11:155). This likely correspondsto the mammographic focal asymmetry in the right central inner breast,which is unchanged since December 31, 2021 and is compatible with a benignetiology. * There is no axillary or internal mammary lymphadenopathy on theright. Left * Heterogeneously enhancing, irregular mass with irregular margins in theleft upper outer breast at posterior depth measures 1.1 x 0.8 x 1.0 cmwith predominantly washout on kinetics (5:43, 11:42). This most likelyrepresents the biopsy-proven malignancy. No associated biopsy clip placeddue to patient declining clip placement at the time of the biopsy. * Homogenously enhancing oval mass with circumscribed margins in the leftcentral outer breast at middle depth measures 0.7 x 0.4 x 0.4 cm withmixed kinetics (5:47, 11:38). This mass is inferolateral to thebiopsy-proven malignancy by 0.5 cm (11:40). It may correspond to thepreviously demonstrated oval hypoechoic mass in the left breast at 3:00, 5cm from the nipple, on the outside ultrasound dated 01/19/2023. * A second homogenously enhancing oval mass with circumscribed margins inthe left central outer breast at anterior depth measures 0.8 x 0.5 x 0.4cm with mixed kinetics (5:51, 11:41). * There is no axillary or internal mammary lymphadenopathy on the left. IMPRESSION: 1. Enhancing 1.1 cm irregular mass in the left upper outer breast withwashout kinetics most likely represents biopsy-proven malignancy. Ifbreast conserving therapy is pursued, recommend placement of a biopsyclip, which can be performed under ultrasound guidance. 2. Indeterminate 0.7 cm enhancing oval mass in the left central outerbreast at middle depth is inferolateral to the biopsy-proven malignancyand likely corresponds with the sonographic oval hypoechoic mass in theleft breast at 3:00, 5 cm from the nipple. Recommend targeted left breastultrasound and ultrasound-guided biopsy. 3. Indeterminate 0.8 cm enhancing oval mass in the left central outerbreast at anterior depth. Recommend targeted left breast ultrasound toidentify a sonographic correlate. If no correlate, recommend MRI-guidedbiopsy. 4. Probably benign T2 hyperintense, enhancing 0.8 cm oval mass in theright upper inner breast likely corresponds to the mammographic focalasymmetry in the right central inner breast, which is unchanged since theoutside mammogram dated 12/31/2021. BI-RADS 4B SUSPICIOUS Please note that mammography offers complementary information to MRI andcertain findings may be visible primarily on mammography. The patientshould keep all scheduled mammography appointments and continue annualscreening mammography. The breast imaging department will contact the patient to schedule therecommended biopsy. Results and recommendations were communicated to the referring providerand documented using the Alert Notification of Critical Radiology Results(ANCR) system. ATTESTATION: Yamilet Sanderson, as teaching physician have reviewed theimages, if any, for this patient's exam, and if necessary, have edited thereport originally created by Zuly Pompa. us Aparna Roland MD IMG MR BREAST Final Result from Last 3 Months or Most Recently Relevant to Health Maintenance Insurance [address] [place] [id number] [facility] [place] [address] [place] [address] ACO Member Subscriber Plan / Payer (Ef fective 2023-Present) Name:Nida [place] Relation to Subscriber:Self Name:Nida [place] Payer ID:[id number] Group ID:[id number] Type:Medicaid Address: [address] [place] [address] ACO Member Subscriber Plan / Payer (Ef fective 2023-Present) Name:Nida [place] Relation to Subscriber:Self Name:Nida [place] Payer ID:[id number] Group ID:[id number] Type:Medicaid Address: [address] [facility] ACO [facility] [place] [address] Member Subscriber Plan / Payer (Ef fective 2023-Present) Name:Nida [place] Relation to Subscriber:Self Name:Nida [place] Payer ID:[id number] (NAIC) Type:HMO Address: [address] [place] [place] [facility] [place] [address] Member Subscriber Plan / Payer (Ef fective 2023-Present) Name:Nida [place] Relation to Subscriber:Self Name:Nida [place] Payer ID:[id number] (NAIC) Type:HMO Address: [address] [place], [place] Advance Directives For more information, please contact: [phone] (9AM - 5PM [place], Tuesday-Tuesday) * Full Code (Latest Code Status on File) Date Activated Date Inactivated Comments 03/10/2023 5:00 PM Question Answer Comments Code Status Confirmed With: Patient Care Teams Cane Flume Feeding Machine Operator Relationship Specialty Start Date End Date Fredy Schumacher MD [address] [place] [id number] PCP - General Family Medicine 02/03/23 Saleem Bray MD [address] [place] [id number] [email or web address] Medical [email or web address] 04/11/23 Tiffanie Ornelas, RN [address] [place] [id number] [email or web address] Primary Infusion Nurse 05/02/23 Meghann Gray, MASOOD [address] [place] [phone] [email or web address] Associate Infusion Nurse 05/20/23 Meghann Szymanski RN [address] [place] [phone] [email or web address] Associate Infusion Nurse 05/20/23 Radha Dodd CNP [address] [place] [id number] [email or web address] Medical Oncology 05/23/23 Additional Source Comments The information contained in this document represents components of the legal health record. It is not the complete legal health record.[facility]
--- OUTSIDE RECORDS SUMMARY | 2024-11-09 14:14 | XMS_ITS | Encounter Summary ---
Author Organization [facility] Address [address] [place] [phone] Phone Care Team Providers Care Medical Record Clerk Name Role Phone Fredy Schumacher MD Primary Care Provider Saleem Bray MD Unavailable Tiffanie Ornelas RN Unavailable [email or web address] [email or web address] Meghann Gray RN Unavailable [email or web address] Meghann Szymanski RN Unavailable VENANCIO [email or web address] Radha Dodd CNP Unavailable [phone] Encounter Details Date Type Department Care Team (Late st Contact Info) Description 02/22/2023 Procedure Pass [facility] [address] [facility] [address] [place] [address] Social History Tobacco Use Types Packs/Day Years Used Date Smoking Tobacco: Former Cigarettes 1 10 0 05/10/2012 - 05/10/2022 Smokeless Tobacco: Never Alcohol Use Standard Drinks/Week Comments Not Currently [...] high school, GED, job training, learning the [place] language, technical skills, or developing parenting skills)? [...] have you moved in the past 12 tue ths? One time 02/21/2023 Paying for Meds [...] with a working camera? Not on file Comments Unknown Sex and Gender Information Value Date Recorded Sex Assigned at Female 02/03/2023 9:26 AM EST Legal Sex Female 9:23 PM EDT Gender Identity Female 02/03/2023 9:26 AM EST Sexual Orientation Choose not to disclose 2023 9:05 PM EST documented as of this encounter Plan of Treatment Not on file documented as of this encounter Visit Diagnoses Not on filedocumented in this encounter Care Teams Medical Record Clerk Relationship Specialty Start Date End Date Fredy Schumacher MD [address] [place] [id number] PCP - General Family Medicine 02/03/23 Saleem Bray MD [address] [place] [phone] [email or web address] Medical [email or web address] 04/11/23 Tiffanie Ornelas, RN [address] [place] [address] [email or web address] Primary Infusion Nurse 05/02/23 Meghann Gray, MASOOD [address] [place] [address] [email or web address] Associate Infusion Nurse 05/20/23 Meghann Szymanski RN [address] [place] [phone] [email or web address] Associate Infusion Nurse 05/20/23 Radha Dodd, PRINCIPAL INVESTIGATOR [address] [place] [phone] [email or web address] Medical Oncology 05/23/23 documented as of this encounter Additional Source Comments The information contained in this document represents components of the legal health record. It is not the complete legal health record.[facility]
--- OUTSIDE RECORDS SUMMARY | 2024-11-09 14:14 | XMS_ITS | Encounter Summary ---
Author Organization [facility] Address [address] [facility] [address] [place] [address] Phone Care Team Providers Care Quality Systems Manager Name Role Phone Fredy Schumacher MD Primary Care Provider Saleem Bray MD Unavailable Tiffanie Ornelas RN Unavailable SARAH [email or web address].[place].[facility] Meghann Gray RN Unavailable [email or web address] Meghann Szymanski RN Unavailable VENANCIO GARCIA@[facility].[place].[facility] Radha Dodd CNP Unavailable [phone] Encounter Details Date Type Department Care Team (Late st Contact Info) Description 07/14/2023 Procedure Pass BWF Periop 1st floor [address] [place] [address] Social History Tobacco Use Types Packs/Day Years [...] high school, GED, job training, learning the Tuvaluan language, technical skills, or developing parenting skills)? [...] on filedocumented in this encounter Care Teams Quality Systems Manager Relationship Specialty Start Date End Date Fredy Schumacher MD [address] [place] [address] PCP - General Family Medicine 02/03/23 Saleem Bray MD [address] [place] [phone] Evelyn@[email or web address] Medical Oncology 04/11/23 Tiffanie Ornelas, MASOOD [address] [place] [phone] [email or web address] Primary Infusion Nurse 05/02/23 Meghann Gray RN [address] [place] [phone] [email or web address] Associate Infusion Nurse 05/20/23 Meghann Szymanski RN [address] [place] [phone] ANGEL@[email or web address] Associate Infusion Nurse 05/20/23 Radha Dodd CNP [address] [place] [phone] [email or web address] Medical Oncology 05/23/23 documented as of this encounter Additional Source Comments The information contained in this document represents components of the legal health record. It is not the complete legal health record.[facility]
--- OUTSIDE RECORDS SUMMARY | 2024-11-09 14:14 | XMS_ITS | Encounter Summary ---
Author Organization [facility] Address [address] [facility] [address] [place] [address] Phone Care Team Providers Care Cigar Sorter Name Role Phone Fredy Schumacher MD Primary Care Provider Saleem Bray MD Unavailable Tiffanie Ornelas RN Unavailable SARAH [email or web address].[email or web address] Meghann Gray RN Unavailable [email or web address] Meghann Szymanski RN Unavailable VENANCIO GARCIA@[email or web address].[email or web address].[facility] Radha Dodd CNP Unavailable [phone] Encounter Details Date Type Department Care Team (Late st Contact Info) Description 06/28/2023 Prep for Surgery [facility] [place] [address] [facility] [address] [place] [address] Alison Conroy PA-C [address] [facility] [address] [place] [address] [email or web address] Social History Tobacco Use Types Packs/Day Years [...] high school, GED, job training, learning the Ghanaian language, technical skills, or developing parenting skills)? [...] your housing situation today? I have alberto little 02/21/2023 How many times have you moved [...] a working camera? Not on file Comments No Sex and Gender Information Value [...] on filedocumented in this encounter Care Teams Cigar Sorter Relationship Specialty Start Date End Date Fredy Schumacher MD [address] [place] [address] PCP - General Family Medicine 02/03/23 Saleem Bray MD [address] [place] [address] [email or web address] Medical Oncology 04/11/23 Tiffanie Ornelas, MASOOD [address] [place] [phone] [email or web address] Primary Infusion Nurse 05/02/23 Meghann Gray, MASOOD [address] [place] [phone] [email or web address] Associate Infusion Nurse 05/20/23 Meghann Szymanski RN [address] [place] [phone] [email or web address] Associate Infusion Nurse 05/20/23 Radha Dodd CNP [address] [place] [phone] Chin@[facility] Medical Oncology 05/23/23 documented as of this encounter Additional Source Comments The information contained in this document represents components of the legal health record. It is not the complete legal health record.[facility]
--- OUTSIDE RECORDS SUMMARY | 2024-11-09 14:14 | XMS_ITS | Encounter Summary ---
Author Organization [facility] Address [address] [facility] [address] [place] [address] Phone Care Team Providers Care Hotel Valet Attendant Name Role Phone Fredy Schumacher MD Primary Care Provider Saleem Bray MD Unavailable Tiffanie Ornelas RN Unavailable SARAH RUSSELL@[facility].[place].[facility] Meghann Gray RN Unavailable [email or web address] Meghann Szymanski RN Unavailable VENANCIO GARCIA@[facility].[place].[facility] Radha Dodd CNP Unavailable [phone] Encounter Details Date Type Department Care Team (Late st Contact Info) Description 03/10/2023 Procedure Pass BWF Periop 1st floor [address] [place] [address] Social History Tobacco Use Types Packs/Day Years [...] high school, GED, job training, learning the Surinamese language, technical skills, or developing parenting skills)? [...] on filedocumented in this encounter Care Teams Hotel Valet Attendant Relationship Specialty Start Date End Date Fredy Schumacher MD [address] [place] [address] PCP - General Family Medicine 02/03/23 Saleem Bray MD [address] [place] [phone] [email or web address] Medical Oncology 04/11/23 Tiffanie Ornelas, RN [address] [place] [address] CHINTAN@[facility] Primary Infusion Nurse 05/02/23 Meghann Gray, MASOOD [address] [place] [address] [email or web address] Associate Infusion Nurse 05/20/23 Meghann Szymanski RN [address] [place] [phone] ANGEL@[facility] Associate Infusion Nurse 05/20/23 Radha Dodd CNP [address] [place] [phone] Chin@[email or web address] Medical Oncology 05/23/23 documented as of this encounter Additional Source Comments The information contained in this document represents components of the legal health record. It is not the complete legal health record.[facility]
--- OUTSIDE RECORDS SUMMARY | 2024-11-09 14:14 | XMS_ITS ---
Author Organization [facility] Address [address] [facility] [address] [place] [address] Phone Care Team Providers Care Rn Delivery Name Role Phone Fredy Schumacher MD Primary Care Provider Saleem Bray MD Unavailable Tiffanie Ornelas RN Unavailable SARAH [email or web address].[place].[facility] Meghann Gray RN Unavailable [email or web address] Meghann Szymanski RN Unavailable VENANCIO GARCIA@[email or web address].[place] Radha Dodd SELF PROPELLED DREDGE OPERATOR Unavailable [phone] Active Problems Problem Noted Date Diagnosed Date Breast cancer in female 03/10/2023 Gastroesophageal reflux disease 03/07/2023 Carcinoma of central portion of left breast in female, estrogen receptor negative 02/22/2023 PALB2-related breast cancer 02/22/2023 Current Treatment and Therapy Plans DOCETAXEL/CYCLOPHOSPHAMIDE* Plan Start Date:04/11/2023 Plan Provider:Saleem Bray MD Linked Problems Carcinoma of central portion of left breast in female, estrogen receptor negative Treatment Medications cycloPHOSphamide (CYTOXAN) i nfusion 250 mL (powder vial)DOCEtaxel (TAXOTERE) IVPB in 250 mL (Doses >85 mg to 199 mg) Past Treatment and Therapy Plans No past plan information found.
== END 2024-11-09 13:46 | disposition home or self-care (01) ==
LOC: HO.HMCFM 12:54
PROVIDERS: Visit Provider Nurse Practitioner Family
DX: R10.30 Lower abdominal pain, unspecified (principal); K59.09 Other constipation; F10.21 Alcohol dependence, in remission; Z87.19 Personal history of other diseases of the digestive system; Z28.21 Immunization not carried out because of patient refusal

== ENCOUNTER 2025-01-29 14:54 | Outpatient (AMB) | payer BC, SELFPAY ==
--- NOTE | 2025-01-29 15:09 | MHC.OFFVIS ---
Vital Signs 01/29/25 15:13 Height 5 ft 8 in Weight 210 lb BMI 31.9 BP 134/86 Blood Pressure Location Lt brachial Position Sitting Pulse 74 Intake Visit Reasons: Breast CA f/u (Carlos Alberto pt - [facility]) +gene Intake Note: Pt c/o: Pharmacy Benefits Coordinator Required: No Accompanied by: Self / Same As Patient Allergies doxycycline (DOXYCYCLINE) Allergy (Unknown, Verified 01/29/25 15:10) NAUSEA/VOMITING Medication List - Last Reconciled 01/29/25 by John Vogel MD compr.stocking,knee,long,large 30-40?mmHg, ?Daily As directed, 90 days HPI Comments Details: 44-year-old female patient with a prior history of invasive ductal carcinoma, triple negative diagnosed on 01/24/2023 subsequently underwent bilateral total mastectomies with left sentinel lymph node biopsy on 03/10/2023 at [facility]. She is also underwent breast reconstruction with subpectoral breast implants. Pathology revealed infiltrating ductal carcinoma, triple negative with 0 of 1 lymph node with metastatic disease. She underwent adjuvant chemotherapy x4 around. She returns today for follow-up breast examination and evaluation for possible breast MRI. This is her 1st follow-up appointment since completing her cancer treatments and has not followed up with the oncologist at [facility] since completing chemotherapy. She was told she needed every six-month examination as well as breast MRI. [facility] Medical History Lyme disease Surgical History History of reconstruction of both breasts (07/13/24) Hx of bilateral mastectomy (02/2023) Family History Mother Breast cancer Family/Other Breast cancer Social History Household Members: None Housing: Apartment Alcohol intake: current Alcohol intake frequency: a few times a week Alcohol type: hard liquor Comment: No alcohol since 01/2021 Patient Tobacco Use Status: Former Tobacco user Years Smoked: Quit in April of 2022. e-Cigarette/Vaping Use: Never Used Substance Use Type: Marijuana service: No Current occupational status: employed Current occupational exposures/hazards: No Cognitive needs: No Hearing needs: No Vision needs: No Female Reproductive History Menstrual Age of Menarche: 11 Review of Systems Const All systems reviewed & are unremarkable except as noted in HPI and below Physical Exam Vital Signs: Last Vital Signs Pulse 74 01/29/25 15:13 BP 134/86 01/29/25 15:13 BMI result Body Mass Index 31.9 Const General: cooperative and no acute distress Nutritional Appearance: well nourished Orientation/consciousness: patient oriented x3 Limitations: no limitations HEENT Head: Yes normocephalic and Yes atraumatic Ears: hearing grossly normal bilaterally Chest Other: Bilateral total mastectomy with reconstruction. Good placement of prosthesis and well-healed incisions. No palpable subcutaneous masses appreciated. No enlarged lymph nodes in either side. No evidence of recurrent disease. Resp Effort & Inspection: normal respiratory effort, no audible wheezes, no cough and no respiratory distress Cardio Jugular venous distension: no JVD GI Inspection: Yes normal to inspection Skin Other: Warm, dry, no rash Neuro Other: Mobility Assessment: 1. 3 meter assessment time (seconds) 5 2. Gait observations: Normal balance and gait General: patient oriented x3 Extrem General: Yes no clubbing, cyanosis or edema Assessment & Plan Assessment & Plan (1) Invasive ductal carcinoma of left breast, stage 1: Code(s): C50.912 - Malignant neoplasm of unspecified site of left female breast Category: Medical (2) Triple negative breast cancer: Code(s): C50.919 - Malignant neoplasm of unspecified site of unspecified female breast; Z17.421 - Hormone receptor negative with human epidermal growth factor receptor 2 negative status Category: Medical (3) PALB2 gene mutation positive: Code(s): Z15.89 - Genetic susceptibility to other disease Category: Medical Plan 44-year-old female patient with a history of infiltrating ductal carcinoma left breast, triple negative, genetic testing positive for PALB2 mutation, status post bilateral total mastectomy, left sentinel node biopsy followed by adjuvant chemotherapy all performed a [facility]. She is doing well with no ongoing breast symptoms. She does note the breast implants to move when flexing her muscles of the chest. She is not happy about this and wishes the implants were above the muscle. Examination today revealed no evidence of recurrent disease. I do think it is reasonable to perform the breast MRI given her high risk for breast cancer. She will return for routine examination in 6 months. Orders: Orders MR breast BI wo/w con Today C50.912 - Malignant neoplasm of unspecified site of left female breast, C50.919 - Malignant neoplasm of unspecified site of unspecified female breast, Z15.89 - Genetic susceptibility to other disease, Z17.421 - Hormone receptor negative with human epidermal growth factor receptor 2 negative status Coding Level of Care Code New Pt Level 4 (97062) Diagnoses Invasive ductal carcinoma of left breast, stage 1 C50.912 Triple negative breast cancer C50.919; Z17.421 PALB2 gene mutation positive Z15.89
[2025-01-29 15:13] VITALS: BP 134/86; PULSE 74; BMI 31.9
--- OUTSIDE RECORDS SUMMARY | 2025-01-29 19:16 | XMS_ITS | Clinical Summary ---
Author Organization [facility] Address [address] [facility] [address] [place] [address] Phone Care Team Providers Care Agricultural Commodities Inspector Name Role Phone Fredy Schumacher MD Primary Care Provider Saleem Bray MD Unavailable Tiffanie Ornelas RN Unavailable SARAH [email or web address].[place].[facility] Meghann Gray RN Unavailable [email or web address] Meghann Szymanski RN Unavailable VENANCIO GARCIA@[facility].[place].[facility] Radha Dodd CNP Unavailable [phone] Allergies Active Allergy Reactions Criticality Noted Date [...] high school, GED, job training, learning the Zambian language, technical skills, or developing parenting skills)? [...] this topic Medical Devices Implanted Type Area Hydro Operator Device Identifier Shelf Expiration Date Model / Serial / Lot Graft Tissue 8x20cm Alloderm Ready To Use Regenerative Matrix Med - [id number] Implanted:Qty: 1 on 03/10/2023 by Aparna Roland MD at [facility] Right: Breast [employer] 03/16/2024 [id number] / / [id number] Description:Alloderm select. First soaked at 1153. Second soak 1250. Third soak 1335 Graft Tissue 8x20cm Alloderm Ready To Use Regenerative Matrix Med - [id number] Implanted:Qty: 1 on 03/10/2023 by Aparna Roland MD at [facility] Left: Breast [employer] 09/13/2024 [id number] / / [id number] Description:Alloderm select. First soaked at 1153. Second soak 1250. Third soak 1335. Breast Implant 750cc Natrelle Gel Inspira Style Srx 800 Round Extra Full - [id number] Implanted:Qty: 1 on 07/14/2023 by Adore Lozano MD at [facility] Left: Breast [employer] 04/01/2027 SRX-750 / [id number] / Breast Implant 750cc Natrelle Gel Inspira Style Srx 800 Round Extra Full - [id number] Implanted:Qty: 1 on 07/14/2023 by Adore Lozano MD at [facility] Right: Breast [employer] 02/11/2025 SRX-750 / [id number] / Explanted Type Area Hydro Operator Device Identifier Shelf Expiration Date Model / Serial / Lot Nozzle Worker Tissue 600cc W15cm H14cm P6.3cm Smooth Natrelle Fourte W/Suture Tabs - [id number] Implanted:Qty: 1 on 03/10/2023 by Aparna Roland MD at [facility] Explanted:Qty: 1 on 07/14/2023 at [facility] Right: Breast [employer] 07/12/2027 133S-MV-15- T / [id number] / [id number] Nozzle Worker Tissue 600cc W15cm H14cm P6.3cm Smooth Natrelle Fourte W/Suture Tabs - [id number] Implanted:Qty: 1 on 03/10/2023 by Aparna Roland MD at [facility] Explanted:Qty: 1 on 07/14/2023 at [facility] Left: Breast [employer] 01/22/2027 133S-MV-15- T / [id number] / Procedures Procedure Name Priority Date/Time Associated [...] Critical Radiology Results (ANCR) system. ATTESTATION: Yamilet Sanderson, as teaching physician have reviewed the images, [...] lymphadenopathy on the left. Procedure Note Yamilet Cabrrea MD - 03/03/2023 BI MRI BREAST WITH [...] Recently Relevant to Health Maintenance Insurance [address] [place] [address] [facility] [place] [address] [address] [place] [address] ACO Member Subscriber Plan / Payer (Ef fective 2023-Present) Name:Nida Hampton Relation to Subscriber:Self Name:Nida Hampton Payer ID:[id number] Group ID:[id number] Type:Medicaid Address: [address] [place] [address] ACO Member Subscriber Plan / Payer (Ef fective 2023-Present) Name:Nida Hampton Relation to Subscriber:Self Name:Nida Hampton Payer ID:[id number] Group ID:[id number] Type:Medicaid Address: [address] [facility] ACO [facility] [place] [address] Member Subscriber Plan / Payer (Ef fective 2023-Present) Name:Nida Hampton Relation to Subscriber:Self Name:Nida Hampton Payer ID:[id number] (NAIC) Type:HMO Address: [address] [place] [place] [facility] [address] Member Subscriber Plan / Payer (Ef fective 2023-Present) Name:Nida Hampton Relation to Subscriber:Self Name:Nida Hampton Payer ID:[id number] (NAIC) Type:HMO Address: [address] [place], [place] Advance Directives For more information, please contact: [phone] (9AM - 5PM [place], Tuesday-Tuesday) * Full Code (Latest Code Status on File) Date Activated Date Inactivated Comments 03/10/2023 5:00 PM Question Answer Comments Code Status Confirmed With: Patient Care Teams Agricultural Commodities Inspector Relationship Specialty Start Date End Date Fredy Schumacher MD PCP - General Family Medicine 02/03/23 Saleem Bray MD [address] [place] [phone] Evelyn@[email or web address] Medical Oncology 04/11/23 Tiffanie Ornelas, RN [address] [place] [phone] CHINTAN@[facility] Primary Infusion Nurse 05/02/23 Meghann Gray, MASOOD [address] [place] [phone] [email or web address] Associate Infusion Nurse 05/20/23 Meghann Szymanski RN [address] [place] [phone] ANGEL@[facility] Associate Infusion Nurse 05/20/23 Radha Dodd CNP [address] [place] [phone] Chin@[email or web address] Medical Oncology 05/23/23 Additional Source Comments The information contained in this document represents components of the legal health record. It is not the complete legal health record.[facility]
--- OUTSIDE RECORDS SUMMARY | 2025-01-29 19:16 | XMS_ITS | Encounter Summary ---
Author Organization [facility] Address [address] [facility] [address] [place] [address] Phone Care Team Providers Care Gunsmith Apprentice Name Role Phone Fredy Schumacher MD Primary Care Provider Saleem Bray MD Unavailable Tiffanie Ornelas RN Unavailable SARAH [email or web address] Meghann Gray RN Unavailable [email or web address] Meghann Szymanski RN Unavailable VENANCIO GARCIA@[facility].[place].[facility] Radha Dodd CNP Unavailable [phone] Encounter Details Date Type Department Care Team (Late st Contact Info) Description 02/22/2023 Procedure Pass [facility] Radiology [address] [facility] [address] [place] [address] Social History Tobacco Use Types Packs/Day Years [...] high school, GED, job training, learning the Azerbaijani language, technical skills, or developing parenting skills)? [...] on filedocumented in this encounter Care Teams Gunsmith Apprentice Relationship Specialty Start Date End Date Fredy Schumacher MD PCP - General Family Medicine 02/03/23 Saleem Bray MD [address] [place] [address] [email or web address] Medical Oncology 04/11/23 Tiffanie Ornelas, RN [address] [place] [address] CHINTAN@[facility] Primary Infusion Nurse 05/02/23 Meghann Gray, MASOOD [address] [place] [phone] [email or web address] Associate Infusion Nurse 05/20/23 Meghann Szymanski RN [address] [place] [phone] ANGEL@[facility] Associate Infusion Nurse 05/20/23 Radha Dodd, MARCO [address] [place] [phone] Chin@[email or web address] Medical Oncology 05/23/23 documented as of this encounter Additional Source Comments The information contained in this document represents components of the legal health record. It is not the complete legal health record.[facility]
--- OUTSIDE RECORDS SUMMARY | 2025-01-29 19:16 | XMS_ITS ---
Author Organization [facility] Address [address] [facility] [address] [place] [address] Phone Care Team Providers Care Dredge Pump Operator Name Role Phone Fredy Schumacher MD Primary Care Provider Saleem Bray MD Unavailable Tiffanie Ornleas RN Unavailable SARAH RUSSELL@[email or web address].[email or web address] Meghann Gray RN Unavailable [email or web address] Meghann Szymanski RN Unavailable VENANCIO GARCIA@[facility].[place].[facility] Radha Dodd CULINARY WORKER Unavailable [phone] Active Problems Problem Noted Date Diagnosed Date [...]
--- OUTSIDE RECORDS SUMMARY | 2025-01-29 19:16 | XMS_ITS | Encounter Summary ---
Author Organization [facility] Address [address] [facility] [address] [place] [phone] Phone Care Team Providers Care Upper Caser Name Role Phone Fredy Schumacher MD Primary Care Provider Saleem Bray MD Unavailable Tiffanie Ornelas RN Unavailable SARAH [email or web address] Meghann Gray RN Unavailable [email or web address] Meghann Szymanski RN Unavailable VENANCIO [email or web address] Radha Dodd CNP Unavailable [phone] Encounter Details Date Type Department Care Team (Late st Contact Info) Description 07/14/2023 Procedure Pass BWF Periop 1st floor [address] [place] [address] Social History Tobacco Use Types Packs/Day Years [...] high school, GED, job training, learning the Emirati language, technical skills, or developing parenting skills)? [...] on filedocumented in this encounter Care Teams [place]er Relationship Specialty Start Date End Date Fredy Schumacher MD PCP - General Family Medicine 02/03/23 Saleem Bray MD [address] [place] [phone] [email or web address] Medical Oncology 04/11/23 Tiffanie Ornelas, MASOOD [address] [place] [address] [email or web address] Primary Infusion Nurse 05/02/23 Meghann Gray RN [address] [place] [phone] [email or web address] Associate Infusion Nurse 05/20/23 Meghann Szymanski RN [address] [place] [phone] [email or web address] Associate Infusion Nurse 05/20/23 Radha Dodd CNP [address] [place] [phone] [email or web address] Medical Oncology 05/23/23 documented as of this encounter Additional Source Comments The information contained in this document represents components of the legal health record. It is not the complete legal health record.[facility]
--- OUTSIDE RECORDS SUMMARY | 2025-01-29 19:16 | XMS_ITS | Encounter Summary ---
Author Organization [facility] Address [address] [facility] [address] [place] [phone] Phone Care Team Providers Care Turf Farmer Name Role Phone Fredy Schumacher MD Primary Care Provider Saleem Bray MD Unavailable Tiffanie Ornelas RN Unavailable SARAH [email or web address] Meghann Gray RN Unavailable [email or web address] Meghann Szymanski RN Unavailable VENANCIO [email or web address] Radha Dodd CNP Unavailable [phone] Encounter Details Date Type Department Care Team (Late st Contact Info) Description 06/28/2023 Prep for Surgery [facility] [facility] [address] [place] [address] Alison Conroy PA-C [address] [facility] [address] [place] [address] [email or web address] Social History Tobacco Use Types Packs/Day Years [...] high school, GED, job training, learning the [place]ian language, technical skills, or developing parenting skills)? [...] on filedocumented in this encounter Care Teams Turf Farmer Relationship Specialty Start Date End Date Fredy Schumacher MD PCP - General Family Medicine 02/03/23 Saleem Bray MD [address] [place] [phone] [email or web address] Medical Oncology 04/11/23 Tiffanie Ornelas, MASOOD [address] [place] [phone] CHINTAN@[email or web address] Primary Infusion Nurse 05/02/23 Meghann Gray, MASOOD [address] [place] [phone] [email or web address] Associate Infusion Nurse 05/20/23 Meghann Szymanski RN [address] [place] [phone] ANGEL@[email or web address] Associate Infusion Nurse 05/20/23 Radha Dodd CNP [address] [place] [phone] Chin@[email or web address] Medical Oncology 05/23/23 documented as of this encounter Additional Source Comments The information contained in this document represents components of the legal health record. It is not the complete legal health record.[facility]
--- OUTSIDE RECORDS SUMMARY | 2025-01-29 19:16 | XMS_ITS | Encounter Summary ---
Author Organization [facility] Address [address] [facility] [address] [place] [phone] Phone Care Team Providers Care Pmo Business Analyst Name Role Phone Fredy Schumacher MD Primary Care Provider Saleem Bray MD Unavailable Tiffanie Ornelas RN Unavailable SARAH [email or web address] Meghann Gray RN Unavailable [email or web address] Meghann Szymanski RN Unavailable VENANCIO [email or web address] Radha Dodd CNP Unavailable [phone] Encounter Details Date Type Department Care Team (Late st Contact Info) Description 03/10/2023 Procedure Pass BWF Periop 1st floor [address] [place] [address] Social History Tobacco Use Types Packs/Day Years [...] high school, GED, job training, learning the [place] language, technical skills, or developing parenting skills)? [...] on filedocumented in this encounter Care Teams Pmo Business Analyst Relationship Specialty Start Date End Date Fredy Schumacher MD PCP - General Family Medicine 02/03/23 Saleem Bray MD [address] [place] [address] [email or web address] Medical Oncology 04/11/23 Tiffanie Ornelas, RN [address] [place] [address] CHINTAN@[facility] Primary Infusion Nurse 05/02/23 Meghann Gray, MASOOD [address] [place] [address] [email or web address] Associate Infusion Nurse 05/20/23 Meghann Szymanski RN [address] [place] [phone] ANGEL@[facility] Associate Infusion Nurse 05/20/23 Radha Dodd CNP [address] [place] [phone] Chin@[email or web address] Medical Oncology 05/23/23 documented as of this encounter Additional Source Comments The information contained in this document represents components of the legal health record. It is not the complete legal health record.[facility]
== END 2025-01-29 15:27 | disposition home or self-care (01) ==
LOC: HO.HGS 14:56
PROVIDERS: Visit Provider Surgery
DX: C50.912 Malignant neoplasm of unspecified site of left female breast (principal); C50.919 Malignant neoplasm of unspecified site of unspecified female breast; Z17.421 Hormone receptor negative with human epidermal growth factor receptor 2 negative status; Z15.89 Genetic susceptibility to other disease
CPT/HCPCS: 99204